=== PATIENT | female | born 1995 | race Hispanic/Latino ===

== ENCOUNTER 2018-05-10 05:49 | Emergency (ER) | payer SELFPAY ==
[2018-05-10] MEDS ORDERED: LIDOCAINE 1% MPF 5 ML VIAL ONE (06:18)
--- NOTE | 2018-05-10 06:43 | EDPHYS ---
Physician Documentation [facility] Name: Althea Harmon Age: 22 yrs Sex: Female : 1995 Arrival Date: 05/10/2018 Time: 05:50 Bed 18 Private MD: ED Physician Douglas Kellogg HPI: 05/10 06:33 This 22 yrs old Female presents to ER via Ambulatory with complaints of gs Foreign Body In Ear. 06:33 The patient presents with a foreign body sensation, presumably from an insect. The gs complaints affect the left ear. Onset: The symptoms/episode began/occurred this morning. Modifying factors: The symptoms are alleviated by nothing, the symptoms are aggravated by nothing. Associated signs and symptoms: Pertinent negatives: cough, fever, lightheadedness. Severity of symptoms: At their worst the symptoms were moderate in the emergency department the symptoms are unchanged. The patient has not experienced similar symptoms in the past. 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 - Social history:: Smoking status: Patient/guardian denies using tobacco. - Ebola Screening: : No symptoms or risks identified at this time. ROS: 06:35 All other systems are negative. gs Exam: 06:35 Head/Face: Normocephalic, atraumatic. Neck: Trachea midline, no thyromegaly or masses gs palpated, and no cervical lymphadenopathy. Supple, full range of motion without nuchal rigidity, or vertebral point tenderness. No Meningismus. 06:35 Constitutional: The patient appears alert, awake, uncomfortable. 06:35 ENT: Ear canal(s): foreign body, an insect, in the left external ear canal. Vital Signs: 06:03 BP 130 / 67; Pulse 99; Resp 18; Temp 98.6; Pulse Ox 100% on R/A; Weight 108.86 kg; aa1 Height 5 ft. 3 in. (160.02 cm); Pain 7/10; 06:03 Body Mass Index 42.51 (108.86 kg, 160.02 cm) aa1 Procedures: 06:35 Foreign Body Removal: an insect, from the left ear canal, by using alligator clamps, gs lidocaine lavage, normal saline irrigation, able to remove completely some mild bleeding noted, . The patient tolerated the removal well. MDM: 06:32 Patient medically screened. 06:35 Data reviewed: vital signs, nurses notes. Response to treatment: the patient's symptoms gs have markedly improved after treatment. Administered Medications: 06:30 Drug: Lidocaine (1 %) 5 mg Route: Infiltration; aa1 06:57 Drug: Zofran 4 mg Route: PO; ea 07:04 Follow up: Response: Medication administered at discharge. ea 06:58 Drug: [place] 5 mg-325 mg 1 tabs Route: PO; ea 07:04 Follow up: Response: Medication administered at discharge. ea Disposition: 05/10/18 06:42 Discharged to Home. Impression: Foreign body in left ear. - Condition is Stable. - Discharge Instructions: Ear Foreign Body, [id number]. - Prescriptions for Ciprodex 0.3- 0.1 % Otic Drops, Suspension - instill 4 drop by OTIC route every 12 hours for 7 days , for ears ONLY; 1 Container. - Medication Reconciliation Form, Thank You Letter, Antibiotic Education, Prescription Opioid Use form. - Follow up: Daja Garces MD; When: 2 - 3 days; Reason: Re-evaluation by your physician. Signatures: Fátima Guevara RN RN aa1 Rosalinda Salinas RN RN ea Douglas Kellogg MD MD Corrections: (The following items were deleted from the chart) 07:04 06:42 05/10/2018 06:42 Discharged to Home. Impression: Foreign body in left ear. ea Condition is Stable. Forms are Medication Reconciliation Form, Thank You Letter, Antibiotic Education, Prescription Opioid Use. Follow up: Daja Garces; When: 2 - 3 days; Reason: Re-evaluation by your physician. gs
--- NOTE | 2018-05-10 06:43 | ER ---
Nurse's Notes [facility] Name: Althea Harmon Age: 22 yrs Sex: Female : 1995 Arrival Date: 05/10/2018 Time: 05:50 Bed 18 Private MD: Diagnosis: Foreign body in left ear Presentation: 05/10 05:59 Presenting complaint: Patient states: she thinks she may have a bug in her L ear. aa1 Reports feeling something crawl into her ear at approx 0100 this am and she cannot get it out. Insect noted in L ear canal. Transition of care: patient was not received from another setting of care. Onset of symptoms was May 10, 2018. Risk Assessment: Do you want to hurt yourself or someone else? Patient reports no desire to harm self or others. Initial Sepsis Screen: Does the patient meet any 2 criteria? No. Patient's initial sepsis screen is negative. Does the patient have a suspected source of infection? No. Patient's initial sepsis screen is negative. Care prior to arrival: None. 05:59 Method Of Arrival: Ambulatory aa1 05:59 Acuity: ZENON 4 aa1 Triage Assessment: 06:03 General: Appears in no apparent distress. comfortable, Behavior is calm, cooperative, aa1 appropriate for age. 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 - Social history:: Smoking status: Patient/guardian denies using tobacco. - Ebola Screening: : No symptoms or risks identified at this time. Screenin:55 Abuse screen: Denies threats or abuse. Denies injuries from another. Nutritional aa1 screening: No deficits noted. Tuberculosis screening: No symptoms or risk factors identified. Fall Risk None identified. Assessment: 05:55 General: Appears in no apparent distress. Behavior is cooperative, anxious. Pain: aa1 Complains of pain in left ear. Neuro: Level of Consciousness is awake, alert, obeys commands, Oriented to person, place, time, situation. Respiratory: Airway is patent Respiratory effort is even, unlabored, Respiratory pattern is regular, symmetrical. EENT: Ear canal w/ foreign body noted from left ear. Derm: Skin is intact, is healthy with good turgor, Skin is pink, warm \T\ dry. 06:58 Reassessment: Patient and/or family updated on plan of care and expected duration. Pain ea level reassessed. Patient is alert, oriented x 3, equal unlabored respirations, skin warm/dry/pink. Discharge instruction given to patient, verbalized the understanding of instruction. Vital Signs: 06:03 BP 130 / 67; Pulse 99; Resp 18; Temp 98.6; Pulse Ox 100% on R/A; Weight 108.86 kg; aa1 Height 5 ft. 3 in. (160.02 cm); Pain 7/10; 06:03 Body Mass Index 42.51 (108.86 kg, 160.02 cm) aa1 ED Course: 05:50 Patient arrived in ED. am2 05:53 Douglas Kellogg MD is Attending Physician. 05:55 Patient has correct armband on for positive identification. Bed in low position. Call aa1 light in reach. Pulse ox on. NIBP on. 06:02 Triage completed. aa1 06:03 Arm band placed on right wrist. aa1 06:35 Assist provider with foreign body removal of an insect from left ear canal. using aa1 alligator clamps, Set up for procedure. Performed by Douglas Kellogg MD. Patient did not have IV access during this emergency room visit. 06:41 Daja Garces MD is Referral Physician. 06:48 Rosalinda Salinas, RN is Primary Nurse. ea Administered Medications: 06:30 Drug: Lidocaine (1 %) 5 mg Route: Infiltration; aa1 06:57 Drug: Zofran 4 mg Route: PO; ea 07:04 Follow up: Response: Medication administered at discharge. ea 06:58 Drug: [place] 5 mg-325 mg 1 tabs Route: PO; ea 07:04 Follow up: Response: Medication administered at discharge. ea Outcome: 06:42 Discharge ordered by . gs 07:00 Condition: improved ea 07:00 Discharge instructions given to patient, Instructed on discharge instructions, follow up and referral plans. medication usage, Demonstrated understanding of instructions, follow-up care, medications, Prescriptions given X 1. 07:03 Discharged to home ambulatory, with friend. ea 07:04 Patient left the ED. ea Signatures: Fátima Guevara RN RN Lali Gr Elena RN Douglas Briceño ea, MD MD gs
[2018-05-10] MEDS ORDERED: HYDROCODONE/APAP 5/325 MG TAB ONE (06:56)
[2018-05-10] MEDS ORDERED: ONDANSETRON 4 MG/2 ML VIAL ONE (06:56)
[2018-05-10] MEDS ORDERED: ONDANSETRON 4 MG (ODT) TAB ONE (06:56)
== END 2018-05-10 07:04 | disposition home or self-care (01) ==
LOC: ER 05:49
PROC: 09C4XZZ Extirpation of Matter from Left External Auditory Canal, External Approach (ICD-10-PCS; principal; 2018-05-10)
DX: T16.2XXA Foreign body in left ear, initial encounter (principal)
CPT/HCPCS: 99284; J2405

== ENCOUNTER 2018-12-06 10:00 | Emergency (ER) | payer SELFPAY ==
--- NOTE | 2018-12-06 11:14 | RAD REPORT ---
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 This should be correlated clinically to see if patient has point tenderness in this region to schwartz ggest an acute fracture. No dislocation
--- NOTE | 2018-12-06 11:16 | RAD REPORT ---
EXAM DESCRIPTION: RAD - Foot Right 3 View - 12/06/2018 10:49 am CLINICAL HISTORY: Right foot pain status post injury FINDINGS: No fracture or dislocation is seen involving the right foot
--- NOTE | 2018-12-06 11:22 | ER ---
Nurse's Notes [facility] Name: Althea Harmon Age: 23 yrs Sex: Female : 1995 Arrival Date: 12/06/2018 Time: 10:01 Bed 11 Private MD: Diagnosis: Sprain of unspecified ligament of right ankle;Unspecified sprain of right foot Presentation: 12/06 10:11 Presenting complaint: Patient states: stepped on toy, twisted right ankle, c/o pain and iw swelling to ankle. Transition of care: patient was not received from another setting of care. Onset of symptoms was December 06, 2018. Risk Assessment: Do you want to hurt yourself or someone else? Patient reports no desire to harm self or others. Initial Sepsis Screen: Does the patient meet any 2 criteria? No. Patient's initial sepsis screen is negative. Does the patient have a suspected source of infection? No. Patient's initial sepsis screen is negative. Care prior to arrival: None. 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 - Social history:: Smoking status: Patient/guardian denies using tobacco. - Ebola Screening: : Patient negative for fever greater than or equal to 101.5 degrees Fahrenheit, and additional compatible Ebola Virus Disease symptoms Patient denies exposure to infectious person Patient denies travel to an Ebola-affected area in the 21 days before illness onset No symptoms or risks identified at this time. Screenin:15 Abuse screen: Denies threats or abuse. Denies injuries from another. Nutritional iw screening: No deficits noted. Tuberculosis screening: No symptoms or risk factors identified. Fall Risk None identified. Assessment: 10:14 General: Appears in no apparent distress. Behavior is calm. Pain: Complains of pain in iw right ankle. Neuro: Level of Consciousness is awake, alert, obeys commands, Oriented to person, place, time. Cardiovascular: Patient's skin is warm and dry. Respiratory: Respiratory effort is even, unlabored, Respiratory pattern is regular. Derm: Skin is intact, is healthy with good turgor. Musculoskeletal: Range of motion: limited in right ankle Reports pain in right ankle. Vital Signs: 10:12 BP 117 / 76; Pulse 84; Resp 16; Pulse Ox 100% on R/A; Weight 97.52 kg; Height 5 ft. 11 iw in. (180.34 cm); Pain 5/10; 10:12 Body Mass Index 29.99 (97.52 kg, 180.34 cm) iw ED Course: 10:01 Patient arrived in ED. as 10:04 Naty Mehta FNP-C is PHCP. kb 10:04 Bhanu Kennedy MD is Attending Physician. kb 10:11 Raven Sher, RN is Primary Nurse. iw 10:12 Triage completed. iw 10:14 Arm band placed on. iw 10:14 Patient has correct armband on for positive identification. iw 10:15 No provider procedures requiring assistance completed. Patient did not have IV access iw during this emergency room visit. 10:48 X-ray completed. Portable x-ray completed in exam room. Patient tolerated procedure jb2 well. 10:49 Ankle Right 3 View XRAY In Process Unspecified. EDMS 10:49 Foot Right 3 View XRAY In Process Unspecified. EDMS Administered Medications: No medications were administered Outcome: 11:21 Discharge ordered by . kb 11:58 Discharged to home ambulatory, with crutches, with family. iw 11:58 Condition: good 11:58 Discharge instructions given to patient, family, Instructed on discharge instructions, follow up and referral plans. medication usage, Demonstrated understanding of instructions, follow-up care, medications, Prescriptions given X 1. 11:59 Patient left the ED. iw Signatures: Dispatcher [employer] EDMS Naty Mehta FNP-C FNP-Brte Field jb2 Kyra Blood as Raven Sher, RN RN iw
--- NOTE | 2018-12-06 11:22 | EDPHYS ---
Physician Documentation [facility] Name: Althea Harmon Age: 23 yrs Sex: Female : 1995 Arrival Date: 12/06/2018 Time: 10:01 Bed 11 Private MD: ED Physician Bhanu Kennedy HPI: 12/06 10:11 This 23 yrs old Female presents to ER via Unassigned with complaints of Ankle kb Injury. 10:11 The patient presents with an injury, pain, swelling, tenderness. The complaints affect kb the right ankle. Onset: The symptoms/episode began/occurred just prior to arrival. Context: The problem was sustained at work, resulted from the patient stepping on toy and twisting foot and ankle The mechanism of injury is unknown. The patient is unable to bear weight. The patient is not able to ambulate. Associated signs and symptoms: Pertinent positives: swelling, Pertinent negatives: calf tenderness, fever, nausea, numbness, rash, tingling, vomiting, warmth, weakness. Modifying factors: The symptoms are alleviated by nothing, the symptoms are aggravated by weight bearing, movement. Severity of symptoms: At their worst the symptoms were moderate, in the emergency department the symptoms are unchanged. The patient has experienced similar episodes in the past, a few times. The patient has not recently seen a physician. 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 Reports she has twisted her ankle a few times in the past, but this is the worst and feels different. Unable to bear weight after incident. 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 - Social history:: Smoking status: Patient/guardian denies using tobacco. - Ebola Screening: : Patient negative for fever greater than or equal to 101.5 degrees Fahrenheit, and additional compatible Ebola Virus Disease symptoms Patient denies exposure to infectious person Patient denies travel to an Ebola-affected area in the 21 days before illness onset No symptoms or risks identified at this time. ROS: 10:16 Constitutional: Negative for fever, chills, and weight loss, Cardiovascular: Negative kb for chest pain, palpitations, and edema, Respiratory: Negative for shortness of breath, cough, wheezing, and pleuritic chest pain, Abdomen/GI: Negative for abdominal pain, nausea, vomiting, diarrhea, and constipation, Skin: Negative for injury, rash, and discoloration, Neuro: Negative for headache, weakness, numbness, tingling, and seizure. 10:16 MS/extremity: Positive for injury or acute deformity, pain, swelling, tenderness, of the dorsum of right foot and right ankle. Exam: 10:16 Constitutional: This is a well developed, well nourished patient who is awake, alert, kb and in no acute distress. Head/Face: Normocephalic, atraumatic. Chest/axilla: Normal chest wall appearance and motion. Nontender with no deformity. No lesions are appreciated. Cardiovascular: Regular rate and rhythm with a normal S1 and S2. No gallops, murmurs, or rubs. Normal PMI, no JVD. No pulse deficits. Respiratory: Lungs have equal breath sounds bilaterally, clear to auscultation and percussion. No rales, rhonchi or wheezes noted. No increased work of breathing, no retractions or nasal flaring. Abdomen/GI: Soft, non-tender, with normal bowel sounds. No distension or tympany. No guarding or rebound. No evidence of tenderness throughout. Skin: Warm, dry with normal turgor. Normal color with no rashes, no lesions, and no evidence of cellulitis. Neuro: Awake and alert, GCS 15, oriented to person, place, time, and situation. Cranial nerves II-XII grossly intact. Motor strength 5/5 in all extremities. Sensory grossly intact. Cerebellar exam normal. Normal gait. 10:16 Musculoskeletal/extremity: Extremities: grossly normal except: noted in the dorsum of right foot and right ankle: pain, swelling, tenderness, ROM: intact in all extremities, limited active range of motion due to pain, Circulation is intact in all extremities. Sensation intact. Weight bearing: is unable to bear weight. Vital Signs: 10:12 BP 117 / 76; Pulse 84; Resp 16; Pulse Ox 100% on R/A; Weight 97.52 kg; Height 5 ft. 11 iw in. (180.34 cm); Pain 5/10; 10:12 Body Mass Index 29.99 (97.52 kg, 180.34 cm) iw MDM: 10:04 Patient medically screened. kb 10:18 Data reviewed: vital signs, nurses notes. Data interpreted: Pulse oximetry: on room air kb is 100 %. Interpretation: normal. 11:17 Counseling: I had a detailed discussion with the patient and/or guardian regarding: the kb historical points, exam findings, and any diagnostic results supporting the discharge/admit diagnosis, radiology results, the need for outpatient follow up, a orthopedic surgeon, to return to the emergency department if symptoms worsen or persist or if there are any questions or concerns that arise at home. 12/06 10:09 Order name: Ankle Right 3 View XRAY; Complete Time: 11:16 kb 12/06 10:09 Order name: Foot Right 3 View XRAY; Complete Time: 11:17 kb 12/06 11:18 Order name: Short Leg Splint; Complete Time: 11:59 kb 12/06 11:18 Order name: Crutches; Complete Time: 11:59 kb Administered Medications: No medications were administered Disposition: 12:36 Co-signature as Attending Physician, Bhanu Kennedy MD I agree with the assessment and sydnee plan of care. Disposition: 12/06/18 11:21 Discharged to Home. Impression: Sprain of unspecified ligament of right ankle, Unspecified sprain of right foot. - Condition is Stable. - Discharge Instructions: Ankle Sprain, [id number], Ankle Fracture, [id number]. - Prescriptions for Diclofenac Sodium 75 mg Oral Tablet, Delayed Release (E.C.) - take 1 tablet by ORAL route 2 times per day As needed; 30 tablet. - Work release form, Medication Reconciliation Form, Thank You Letter, Antibiotic Education, Prescription Opioid Use form. - Follow up: Emergency Department; When: As needed; Reason: Worsening of condition. Follow up: Private Physician; When: 2 - 3 days; Reason: Recheck today's complaints, Continuance of care, Re-evaluation by your physician. Signatures: Dispatcher [employer] Naty Jasso, Bhanu Perez MD MD cha Williams, Irene, MAGALY RN iw Corrections: (The following items were deleted from the chart) 11:59 11:21 12/06/2018 11:21 Discharged to Home. Impression: Sprain of unspecified ligament iw of right ankle; Unspecified sprain of right foot. Condition is Stable. Forms are Medication Reconciliation Form, Thank You Letter, Antibiotic Education, Prescription Opioid Use. Follow up: Emergency Department; When: As needed; Reason: Worsening of condition. Follow up: Private Physician; When: 2 - 3 days; Reason: Recheck today's complaints, Continuance of care, Re-evaluation by your physician. kb
== END 2018-12-06 11:59 | disposition home or self-care (01) ==
LOC: ER 10:00
DX: S93.401A Sprain of unspecified ligament of right ankle, initial encounter (principal); X50.1XXA Overexertion from prolonged static or awkward postures, initial encounter; Y93.01 Activity, walking, marching and hiking; Y92.210 Daycare center as the place of occurrence of the external cause
CPT/HCPCS: 99283

== ENCOUNTER 2019-07-08 15:24 | Emergency (ER) | payer SELFPAY ==
[2019-07-08] MEDS ORDERED: DIAZEPAM 2 MG TABLET ONE (17:36)
[2019-07-08] MEDS ORDERED: dexAMETHasone 4 MG/ML VIAL ONE (17:36)
--- NOTE | 2019-07-08 17:36 | EDPHYS ---
Physician Documentation [facility] Name: Althea Harmon Age: 23 yrs Sex: Female : 1995 Arrival Date: 07/08/2019 Time: 15:25 Bed 14 Private MD: ED Physician Delgado Garcia HPI: 07/08 17:29 This 23 yrs old Female presents to ER via Ambulatory with complaints of Back snw Pain. 17:29 The patient presents with pain that is acute. The symptoms are located in the low back. 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 The pain radiates to the left leg. The problem was sustained when bending over. Modifying factors: The patient symptoms are alleviated by nothing, the patient symptoms are aggravated by bending. Severity of symptoms: At their worst the symptoms were moderate. The patient has experienced similar episodes in the past. The patient has not recently seen a physician. Historical: - Allergies: 15:43 No Known Allergies; la1 - PMHx: 15:43 None; la1 - Immunization history:: Adult Immunizations up to date. - Social history:: Smoking status: Patient/guardian denies using tobacco. - Ebola Screening: : No symptoms or risks identified at this time. ROS: 17:28 Constitutional: Negative for fever, chills, and weight loss, Eyes: Negative for injury, snw pain, redness, and discharge, ENT: Negative for injury, pain, and discharge, Neck: Negative for injury, pain, and swelling, Cardiovascular: Negative for chest pain, palpitations, and edema, Respiratory: Negative for shortness of breath, cough, wheezing, and pleuritic chest pain, Abdomen/GI: Negative for abdominal pain, nausea, vomiting, diarrhea, and constipation, : Negative for injury, bleeding, discharge, and swelling, MS/Extremity: Negative for injury and deformity, Skin: Negative for injury, rash, and discoloration, Neuro: Negative for headache, weakness, numbness, tingling, and seizure, Psych: Negative for depression, anxiety, suicide ideation, homicidal ideation, and hallucinations. 17:28 Back: Positive for decreased range of motion, pain with movement, radiated pain, of the down left leg. Exam: 17:27 Constitutional: This is a well developed, well nourished patient who is awake, alert, snw and in no acute distress. Head/Face: Normocephalic, atraumatic. Eyes: Pupils equal round and reactive to light, extra-ocular motions intact. Lids and lashes normal. Conjunctiva and sclera are non-icteric and not injected. Cornea within normal limits. Periorbital areas with no swelling, redness, or edema. ENT: Nares patent. No nasal discharge, no septal abnormalities noted. Tympanic membranes are normal and external auditory canals are clear. Oropharynx with no redness, swelling, or masses, exudates, or evidence of obstruction, uvula midline. Mucous membranes moist. Neck: Trachea midline, no thyromegaly or masses palpated, and no cervical lymphadenopathy. Supple, full range of motion without nuchal rigidity, or vertebral point tenderness. No Meningismus. Chest/axilla: Normal chest wall appearance and motion. Nontender with no deformity. No lesions are appreciated. Cardiovascular: Regular rate and rhythm with a normal S1 and S2. No gallops, murmurs, or rubs. Normal PMI, no JVD. No pulse deficits. Respiratory: Lungs have equal breath sounds bilaterally, clear to auscultation and percussion. No rales, rhonchi or wheezes noted. No increased work of breathing, no retractions or nasal flaring. Abdomen/GI: Soft, non-tender, with normal bowel sounds. No distension or tympany. No guarding or rebound. No evidence of tenderness throughout. Skin: Warm, dry with normal turgor. Normal color with no rashes, no lesions, and no evidence of cellulitis. MS/ Extremity: Pulses equal, no cyanosis. Neurovascular intact. Full, normal range of motion. Neuro: Awake and alert, GCS 15, oriented to person, place, time, and situation. Cranial nerves II-XII grossly intact. Motor strength 5/5 in all extremities. Sensory grossly intact. Cerebellar exam normal. Normal gait. Psych: Awake, alert, with orientation to person, place and time. Behavior, mood, and affect are within normal limits. 17:27 Back: pain, that is moderate, ROM is painful, with flexion, muscle spasm, is not present, Straight leg raises: left lower extremity illicits pain, at 30 degrees. 17:27 Neuro: Exam negative for acute changes, focal neuro deficits. Vital Signs: 15:43 BP 119 / 67; Pulse 84; Resp 18; Temp 98.1; Pulse Ox 100% on R/A; Weight 104.33 kg; la1 Height 5 ft. 2 in. (157.48 cm); 17:45 BP 117 / 64; Pulse 78; Resp 18; Temp 97.6; Pulse Ox 99% on R/A; ph 15:43 Body Mass Index 42.07 (104.33 kg, 157.48 cm) la1 MDM: 16:32 Patient medically screened. snw 17:30 Data reviewed: vital signs, nurses notes. Data interpreted: Pulse oximetry: on room air snw is 100 %. Interpretation: normal. Counseling: I had a detailed discussion with the patient and/or guardian regarding: the historical points, exam findings, and any diagnostic results supporting the discharge/admit diagnosis, the need for outpatient follow up, to return to the emergency department if symptoms worsen or persist or if there are any questions or concerns that arise at home. Special discussion: Based on the history and exam findings, there is no indication for further emergent testing or inpatient evaluation. I discussed with the patient/guardian the need to see the back specialist for further evaluation of the symptoms. I discussed with the patient/guardian the need to see the primary care provider for further evaluation of the symptoms. 07/08 16:53 Order name: Urine Dipstick--Ancillary (enter results); Complete Time: 19:13 ss 07/08 16:53 Order name: Urine --Ancillary (enter results); Complete Time: 19:13 ss 07/08 16:46 Order name: Urine Dipstick-Ancillary (obtain specimen); Complete Time: 16:51 ph Administered Medications: 17:49 Drug: Valium 5 mg Route: PO; ph 18:15 Follow up: Response: No adverse reaction ph 17:50 Drug: Decadron 8 mg Route: PO; ph 18:15 Follow up: Response: No adverse reaction ph Disposition: 07/08/19 17:35 Discharged to Home. Impression: Low back pain. - Condition is Stable. - Discharge Instructions: Back Pain, Adult. - Prescriptions for Ultram 50 mg Oral Tablet - take 1 tablet by ORAL route every 6 hours As needed; 12 tablet. Prednisone 20 mg Oral Tablet - take 2 tablet by ORAL route once daily for 5 days; 10 tablet. - Work release form, Medication Reconciliation Form, Thank You Letter, Antibiotic Education, Prescription Opioid Use form. - Follow up: Private Physician; When: 1 - 2 days; Reason: Recheck today's complaints, Continuance of care, Re-evaluation by your physician. Follow up: Emergency Department; When: As needed; Reason: Worsening of condition. Addendum: 07/12/2019 06:59 Co-signature as Attending Physician, Delgado Garcia MD. r n Signatures: Dispatcher [employer] EDMS Sylvie Beckford, FINGER WAVER-C FINGER WAVER-Csnw Delgado Garcia MD MD rn Attema, Lee RN RN laGay Fall RN RN ph Corrections: (The following items were deleted from the chart) 07/08 18:29 17:35 07/08/2019 17:35 Discharged to Home. Impression: Low back pain. Condition is ph Stable. Forms are Medication Reconciliation Form, Thank You Letter, Antibiotic Education, Prescription Opioid Use. Follow up: Private Physician; When: 1 - 2 days; Reason: Recheck today's complaints, Continuance of care, Re-evaluation by your physician. Follow up: Emergency Department; When: As needed; Reason: Worsening of condition. snw
--- NOTE | 2019-07-08 17:36 | ER ---
Nurse's Notes [facility] Name: Althea Harmon Age: 23 yrs Sex: Female : 1995 Arrival Date: 07/08/2019 Time: 15:25 Bed 14 Private MD: Diagnosis: Low back pain Presentation: 07/08 15:42 Presenting complaint: Patient states: I have been having back pain for months, I bent la1 over today and something happened and now I can hardly put weight on that left side. Transition of care: patient was not received from another setting of care. Onset of symptoms was July 08, 2019. Risk Assessment: Do you want to hurt yourself or someone else? Patient reports no desire to harm self or others. Initial Sepsis Screen: Does the patient meet any 2 criteria? No. Patient's initial sepsis screen is negative. Does the patient have a suspected source of infection? No. Patient's initial sepsis screen is negative. Care prior to arrival: None. 15:42 Method Of Arrival: Ambulatory la1 15:42 Acuity: ZENON 3 la1 Historical: - Allergies: 15:43 No Known Allergies; la1 - PMHx: 15:43 None; la1 - Immunization history:: Adult Immunizations up to date. - Social history:: Smoking status: Patient/guardian denies using tobacco. - Ebola Screening: : No symptoms or risks identified at this time. Screenin:00 Abuse screen: Denies threats or abuse. Denies injuries from another. Nutritional ph screening: No deficits noted. Tuberculosis screening: No symptoms or risk factors identified. Fall Risk None identified. Assessment: 17:00 General: Appears in no apparent distress. uncomfortable, obese, well groomed, Behavior ph is calm, cooperative, appropriate for age. Pain: Complains of pain in low back area Pain radiates to left leg. Neuro: Level of Consciousness is awake, alert, obeys commands, Oriented to person, place, time, situation. Cardiovascular: Capillary refill < 3 seconds in bilateral fingers Patient's skin is warm and dry. Respiratory: Airway is patent Respiratory effort is even, unlabored, Respiratory pattern is regular, symmetrical. Derm: Skin is intact, is healthy with good turgor, Skin is pink, warm \T\ dry. Musculoskeletal: Circulation, motion, and sensation intact. Range of motion: intact in all extremities. Vital Signs: 15:43 BP 119 / 67; Pulse 84; Resp 18; Temp 98.1; Pulse Ox 100% on R/A; Weight 104.33 kg; la1 Height 5 ft. 2 in. (157.48 cm); 17:45 BP 117 / 64; Pulse 78; Resp 18; Temp 97.6; Pulse Ox 99% on R/A; ph 15:43 Body Mass Index 42.07 (104.33 kg, 157.48 cm) la1 ED Course: 15:25 Patient arrived in ED. as 15:26 Sylvie Beckford FNP-C is PHCP. snw 15:26 Delgado Garcia MD is Attending Physician. snw 15:42 Triage completed. la1 15:43 Arm band placed on left wrist. la1 16:32 Gay Hoffman, RN is Primary Nurse. ph 17:00 Patient has correct armband on for positive identification. Bed in low position. Call ph light in reach. Side rails up X 1. 18:25 No provider procedures requiring assistance completed. Patient did not have IV access ph during this emergency room visit. Administered Medications: 17:49 Drug: Valium 5 mg Route: PO; ph 18:15 Follow up: Response: No adverse reaction ph 17:50 Drug: Decadron 8 mg Route: PO; ph 18:15 Follow up: Response: No adverse reaction ph Outcome: 17:35 Discharge ordered by MD. snw 18:29 Patient left the ED. ph 18:29 Discharged to home ambulatory, with significant other. ph 18:29 Condition: good 18:29 Discharge instructions given to patient, Instructed on discharge instructions, follow up and referral plans. medication usage, Demonstrated understanding of instructions, follow-up care, medications, Prescriptions given X 2. Signatures: Sylvie Beckford FNP-C MEDICAL RECEPTIONIST-Csnw Kyra Blood Lee RN RN la1 Gay Hoffman RN RN ph
[2019-07-08 18:18] LABS: Urine Blood NEGATIVE (NEG); Urine Glucose NEGATIVE (NEG); Urine Protein NEGATIVE (NEG); Urine Specific Gravity 1.025 (1.005-1.030)
[2019-07-08 19:20] VITALS: BP 119/67; TEMP 98.1; O2SAT 100
== END 2019-07-08 18:29 | disposition home or self-care (01) ==
LOC: ER 15:24
DX: M54.5 Low back pain (principal)
CPT/HCPCS: 81003; 81025; 99283

== ENCOUNTER 2019-08-29 18:27 | Emergency (ER) | payer SELFPAY ==
--- OUTSIDE RECORDS SUMMARY | 2019-08-29 18:28 | XMS REPORT ---
:1995 [facility] Address [address] [place] [address] Dr. Jones [address] [place] [id number] Care Team Providers Name Role Phone Unavailable Unavailable Unavailable Problems This patient has no known problems. Allergies, Adverse Reactions, Alerts This patient has no known allergies or adverse reactions. Medications This patient has no known medications.
[2019-08-29 19:31] LABS: Absolute Lymphocytes (CBC) 2.9 K/uL (0.7-4.9); Basophils % 0.4 % (0-1.3); Hematocrit 39.9 % (36.0-45.0); Lymphocytes % 29.4 % (15.3-44.8); MPV 7.8 fL (7.6-11.3); RBC Red Blood Cell Count 4.88 M/uL (3.86-4.86)
[2019-08-29 19:47] LABS: Urine Blood NEGATIVE (NEG); Urine Glucose NEGATIVE (NEG); Urine Protein NEGATIVE (NEG); Urine Specific Gravity 1.025 (1.005-1.030)
--- NOTE | 2019-08-29 19:48 | RAD REPORT ---
EXAM DESCRIPTION: US - Abdomen Exam Limited - 08/29/2019 7:41 pm CLINICAL HISTORY: ABD PAIN COMPARISON: No comparisons FINDINGS: No gallstones, sludge or other abnormalities within the gallbladder lumen. There is no wal l thickening or pericholecystic fluid. No common duct stone or biliary tree dilatation identified. IMPRESSION: Normal gallbladder and biliary tree ultrasound.
[2019-08-29 19:50] LABS: ALT/SGPT 35 U/L (12-78); AST/SGOT 19 U/L (15-37); Albumin 4.2 g/dL (3.4-5.0); Alkaline Phosphatase 80 U/L (45-117); BUN Blood Urea Nitrogen 9 mg/dL (7-18); Bicarbonate 28 mmol/L (21-32); Bilirubin Direct 0.1 mg/dL (0-0.2); Bilirubin Total 0.4 mg/dL (0.2-1.0); Glucose Level 103 mg/dL (74-106); Lipase 86 U/L (73-393); Potassium 3.3 mmol/L (3.5-5.1); Protein, Total 8.1 g/dL (6.4-8.2); Sodium Level 138 mmol/L (136-145)
--- NOTE | 2019-08-29 20:05 | ER ---
Nurse's Notes [facility] Name: Althea Harmon Age: 24 yrs Sex: Female : 1995 Arrival Date: 08/29/2019 Time: 18:30 Bed 20 Private MD: Diagnosis: Abdominal and pelvic pain Presentation: 08/29 19:09 Presenting complaint: Patient states: I am having these abdominal pain for 3 days, on rr5 and off its more on the upper area of my abdomen. I noticed whenever I eat junk food or greasy food. I am also throwing up and feels nauseated. Transition of care: patient was not received from another setting of care. Onset of symptoms was August 26, 2019. Risk Assessment: Do you want to hurt yourself or someone else? Patient reports no desire to harm self or others. Initial Sepsis Screen: Does the patient meet any 2 criteria? No. Patient's initial sepsis screen is negative. Does the patient have a suspected source of infection? No. Patient's initial sepsis screen is negative. Care prior to arrival: None. 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 - Social history:: Smoking status: Patient/guardian denies using tobacco, Patient/guardian denies using alcohol, street drugs. - Ebola Screening: : Patient negative for fever greater than or equal to 101.5 degrees Fahrenheit, and additional compatible Ebola Virus Disease symptoms Patient denies exposure to infectious person Patient denies travel to an Ebola-affected area in the 21 days before illness onset. Screenin:35 Abuse screen: Denies threats or abuse. Denies injuries from another. Nutritional rr5 screening: No deficits noted. Tuberculosis screening: No symptoms or risk factors identified. Fall Risk IV access (20 points). Total Shah Fall Scale indicates No Risk (0-24 pts). Assessment: 19:10 General: Appears in no apparent distress. comfortable, Behavior is calm, cooperative, rr5 appropriate for age. 19:10 Pain: Complains of pain in right upper quadrant and left upper quadrant Pain does not rr5 radiate. Pain currently is 3 out of 10 on a pain scale. at worst was 10 out of 10 on a pain scale. Quality of pain is described as aching, Pain began gradually, 2-3 days ago. Is intermittent, Aggravated by eating. Neuro: Level of Consciousness is awake, alert, obeys commands, Oriented to person, place, time, situation. Cardiovascular: Capillary refill < 3 seconds Patient's skin is warm and dry. Respiratory: Airway is patent Respiratory effort is even, unlabored, Respiratory pattern is regular, symmetrical. GI: Abdomen is round non-distended, obese, Bowel sounds present X 4 quads. Abd is soft and non tender Reports upper abdominal pain, nausea, vomiting. : No signs and/or symptoms were reported regarding the genitourinary system. EENT: No signs and/or symptoms were reported regarding the EENT system. Derm: Skin is intact, is healthy with good turgor, Skin temperature is warm. Musculoskeletal: Circulation, motion, and sensation intact. Capillary refill < 3 seconds. 19:35 Reassessment: Patient appears in no apparent distress at this time. ongoing ultrasound rr5 at bedside. 20:14 Reassessment: Patient appears in no apparent distress at this time. Patient is alert, rr5 oriented x 3, equal unlabored respirations, skin warm/dry/pink. discharge instruction given and explained without complaints made, verbalized understanding. Vital Signs: 19:12 BP 129 / 90; Pulse 101; Resp 20; Temp 98.4; Pulse Ox 100% ; Pain 3/10; rr5 19:22 Weight 117.93 kg; Height 5 ft. 3 in. (160.02 cm); rr5 20:14 BP 115 / 83; Pulse 95; Resp 16; Temp 98.2; Pulse Ox 99% on R/A; rr5 19:22 Body Mass Index 46.06 (117.93 kg, 160.02 cm) rr5 ED Course: 18:30 Patient arrived in ED. as 18:42 Quoc Grissom [facility]-C [facility] la1 18:42 Moses Wheeler MD is Attending Physician. la1 19:01 Donovan Grissom RN is Primary Nurse. rr5 19:10 Patient has correct armband on for positive identification. Bed in low position. Call rr5 light in reach. Pulse ox on. NIBP on. 19:12 Triage completed. rr5 19:21 Initial lab(s) drawn, by me, sent to lab. Inserted saline lock: 20 gauge in right lt1 antecubital area, using aseptic technique. 19:23 Arm band placed on right wrist. rr5 19:42 US Abdomen Limited In Process Unspecified. EDMS 20:15 No provider procedures requiring assistance completed. IV discontinued, intact, rr5 bleeding controlled, No redness/swelling at site. Pressure dressing applied. Administered Medications: No medications were administered Outcome: 20:04 Discharge ordered by MD. la1 20:15 Discharged to home ambulatory, with friend. rr5 20:15 Condition: stable 20:15 Discharge instructions given to patient, Instructed on discharge instructions, follow up and referral plans. medication usage, Demonstrated understanding of instructions, follow-up care, Prescriptions given X 2. 20:16 Patient left the ED. rr5 Signatures: Dispatcher [employer] EDND Kyra Blood Lee, SALES AND MARKETING ANALYST-C SALES AND MARKETING ANALYST-Cla1 Donovan Grissom, RN RN rr5 Tana Marshall lt1
--- NOTE | 2019-08-29 20:05 | EDPHYS ---
Physician Documentation [facility] Name: Althea Harmon Age: 24 yrs Sex: Female : 1995 Arrival Date: 08/29/2019 Time: 18:30 Bed 20 Private MD: ED Physician Moses Wheeler HPI: 08/29 19:09 This 24 yrs old Female presents to ER via Unassigned with complaints of la1 Abdominal Pain. 19:09 The patient presents with abdominal pain in the upper abdomen. Onset: The la1 symptoms/episode began/occurred today. The symptoms radiate to Associated signs and symptoms: Pertinent positives: nausea. The symptoms are described as sharp. Modifying factors: The symptoms are alleviated by nothing, the symptoms are aggravated by spicy food. Severity of pain: At its worst the pain was moderate. The patient has not experienced similar symptoms in the past. 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 - Social history:: Smoking status: Patient/guardian denies using tobacco, Patient/guardian denies using alcohol, street drugs. - Ebola Screening: : Patient negative for fever greater than or equal to 101.5 degrees Fahrenheit, and additional compatible Ebola Virus Disease symptoms Patient denies exposure to infectious person Patient denies travel to an Ebola-affected area in the 21 days before illness onset. ROS: 19:10 Constitutional: Negative for fever, chills, and weight loss, Eyes: Negative for injury, la1 pain, redness, and discharge, ENT: Negative for injury, pain, and discharge, Neck: Negative for injury, pain, and swelling, Cardiovascular: Negative for chest pain, palpitations, and edema, Respiratory: Negative for shortness of breath, cough, wheezing, and pleuritic chest pain, Back: Negative for injury and pain. 19:10 MS/Extremity: Negative for injury and deformity, Neuro: Negative for headache, weakness, numbness, tingling, and seizure. 19:10 Abdomen/GI: Positive for abdominal pain, nausea. Exam: 19:11 Constitutional: This is a well developed, well nourished patient who is awake, alert, la1 and in no acute distress. Head/Face: Normocephalic, atraumatic. Eyes: Pupils equal round and reactive to light, extra-ocular motions intact. . Periorbital areas with no swelling, redness, or edema. ENT: Mucous membranes moist. Neck: Trachea midline, no thyromegaly or masses palpated, and no cervical lymphadenopathy. Supple, full range of motion without nuchal rigidity, or vertebral point tenderness. No Meningismus. Chest/axilla: Normal chest wall appearance and motion. Nontender with no deformity. No lesions are appreciated. Cardiovascular: Regular rate and rhythm with a normal S1 and S2. No gallops, murmurs, or rubs. Normal PMI, no JVD. No pulse deficits. Respiratory: Lungs have equal breath sounds bilaterally, clear to auscultation No rales, rhonchi or wheezes noted. No increased work of breathing, no retractions or nasal flaring. 19:11 Abdomen/GI: Inspection: abdomen appears normal, Bowel sounds: normal, Palpation: soft, in all quadrants, mild abdominal tenderness, in the right upper quadrant and left upper quadrant, Indicators: McBurney's point is not tender, Dixon's sign is negative, Rovsing's sign is negative, Obturator sign is negative, Psoas sign is negative. Vital Signs: 19:12 BP 129 / 90; Pulse 101; Resp 20; Temp 98.4; Pulse Ox 100% ; Pain 3/10; rr5 19:22 Weight 117.93 kg; Height 5 ft. 3 in. (160.02 cm); rr5 20:14 BP 115 / 83; Pulse 95; Resp 16; Temp 98.2; Pulse Ox 99% on R/A; rr5 19:22 Body Mass Index 46.06 (117.93 kg, 160.02 cm) rr5 MDM: 19:03 Patient medically screened. la1 20:02 Data reviewed: vital signs, nurses notes, lab test result(s), radiologic studies, I la1 have discussed the patient's presentation/case with the attending Emergency Department Physician; and as a result, I will discharge patient. Data interpreted: Pulse oximetry: on room air is 100 %. Interpretation: normal. Counseling: I had a detailed discussion with the patient and/or guardian regarding: the historical points, exam findings, and any diagnostic results supporting the discharge/admit diagnosis, the presence of at least one elevated blood pressure reading (>120/80) during this emergency department visit, radiology results, the need for outpatient follow up, a family practitioner. 20:03 Special discussion: Based on the patient's Hx, exam, and Dx evaluation, there is no la1 indication for emergent surgery or inpatient Tx. It is understood by the patient/guardian that if the Sx's persist or worsen they need to return immediately for re-evaluation. ED course: Pt tolerating PO, not in pain at this time, since gall bladder is normal I suspect GERD or gastritis. 08/29 19:08 Order name: Basic Metabolic Panel; Complete Time: 19:59 la1 08/29 19:08 Order name: CBC with Diff; Complete Time: 19:59 la1 08/29 19:08 Order name: Creatinine for Radiology; Complete Time: 19:59 la1 08/29 19:08 Order name: Hepatic Function; Complete Time: 19:59 la1 08/29 19:08 Order name: Lipase; Complete Time: 19:59 la1 08/29 19:32 Order name: Urine Dipstick--Ancillary (enter results); Complete Time: 19:59 ar5 08/29 19:08 Order name: IV Saline Lock; Complete Time: 19:22 la1 08/29 19:08 Order name: Labs collected and sent; Complete Time: 19:22 la1 08/29 19:08 Order name: Urine Dipstick-Ancillary (obtain specimen); Complete Time: 19:33 la1 08/29 19:08 Order name: Urine Test (obtain specimen); Complete Time: 19:33 la1 08/29 19:08 Order name: US Abdomen Limited; Complete Time: 19:59 la1 08/29 19:32 Order name: Urine --Ancillary (enter results); Complete Time: 19:59 ar5 Administered Medications: No medications were administered Disposition: 20:25 Co-signature as Attending Physician, Moses Wheeler MD. pkl Disposition: 08/29/19 20:04 Discharged to Home. Impression: Abdominal and pelvic pain. - Condition is Stable. - Discharge Instructions: Abdominal Pain, Adult, Godu-sa-Dida. - Prescriptions for Protonix 40 mg Oral Tablet - take 1 tablet by ORAL route once daily; 30 tablet. Pepcid 20 mg Oral Tablet - take 1 tablet by ORAL route once daily; 20 tablet. - Medication Reconciliation Form, Thank You Letter form. - Follow up: Private Physician; When: 2 - 3 days; Reason: Recheck today's complaints, Re-evaluation by your physician. - Problem is new. - Symptoms have improved. Signatures: Dispatcher [employer] EDNC Moses Wheeler MD MD pkl Quoc Grissom FNP-C REGIONAL RECRUITER-Cla1 Donovan Grissom, RN RN rr5 Corrections: (The following items were deleted from the chart) 20:16 20:04 08/29/2019 20:04 Discharged to Home. Impression: Abdominal and pelvic pain. rr5 Condition is Stable. Forms are Medication Reconciliation Form, Thank You Letter, Antibiotic Education, Prescription Opioid Use. Follow up: Private Physician; When: 2 - 3 days; Reason: Recheck today's complaints, Re-evaluation by your physician. Problem is new. Symptoms have improved. la1
[2019-08-29 23:11] VITALS: BP 115/83; TEMP 98.2; O2SAT 99
== END 2019-08-29 20:16 | disposition home or self-care (01) ==
LOC: ER 18:27
DX: R10.9 Unspecified abdominal pain (principal); R10.2 Pelvic and perineal pain
CPT/HCPCS: 36415; 76705; 80048; 80076; 81003; 81025; 83690; 85025; 99284

== ENCOUNTER 2019-10-02 12:31 | Emergency (ER) | payer SELFPAY ==
--- OUTSIDE RECORDS SUMMARY | 2019-10-02 12:46 | XMS REPORT ---
:1995 [facility] Address [address] [place] [address] Dr. Jones [address] [place] [id number] Care Team Providers Name Role Phone Unavailable Unavailable Unavailable Problems This patient has no known problems. Allergies, Adverse Reactions, Alerts This patient has no known allergies or adverse reactions. Medications This patient has no known medications.
[2019-10-02] MEDS ORDERED: IBUPROFEN 200 MG TAB PO ONE (13:09)
[2019-10-02] MEDS ORDERED: ACETAMINOPHEN 500 MG TAB ONE (13:39)
--- NOTE | 2019-10-02 14:16 | ER ---
Nurse's Notes [facility] Name: Althea Harmon Age: 24 yrs Sex: Female : 1995 Arrival Date: 10/02/2019 Time: 12:31 Bed 23 Private MD: Diagnosis: Streptococcal pharyngitis Presentation: 10/02 12:59 Presenting complaint: Patient states: sore throat, cough, low grade fever, chills and ss ear pain that began yesterday. Transition of care: patient was not received from another setting of care. Onset of symptoms was October 01, 2019. Risk Assessment: Do you want to hurt yourself or someone else? Patient reports no desire to harm self or others. Initial Sepsis Screen: Does the patient meet any 2 criteria? HR > 90 bpm. Does the patient have a suspected source of infection? No. Patient's initial sepsis screen is negative. Care prior to arrival: None. 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 - Social history:: Smoking status: Patient/guardian denies using tobacco. - Ebola Screening: : Patient denies exposure to infectious person Patient denies travel to an Ebola-affected area in the 21 days before illness onset. Screenin:16 Abuse screen: Denies threats or abuse. Denies injuries from another. Nutritional mg2 screening: No deficits noted. Tuberculosis screening: No symptoms or risk factors identified. Fall Risk None identified. Assessment: 12:50 General: Appears in no apparent distress. ill, Behavior is calm, cooperative. General: ss Reports chills for 12-24 hours, fever for 12-24 hours, feeling ill for 12-24 hours, fatigue for 12-24 hours. Pain: Complains of pain in headache, sore throat. Neuro: Level of Consciousness is awake, alert, obeys commands, Oriented to person, place, time, situation. Respiratory: Reports mild cough that began yesterday. GI: Patient currently denies diarrhea, nausea, vomiting. : Denies burning with urination, urinary frequency. Derm: Skin is intact, is healthy with good turgor, Skin is dry, Skin is pink, warm \T\ dry. normal. Derm: Musculoskeletal: Circulation, motion, and sensation intact. Capillary refill < 3 seconds, is brisk, in bilateral fingers. Range of motion: intact in all extremities. 14:15 General: Appears in no apparent distress. comfortable, Behavior is calm, cooperative. mg2 Pain: Complains of pain in throat. Neuro: Level of Consciousness is awake, alert, obeys commands, Oriented to person, place, time, situation. Cardiovascular: Capillary refill < 3 seconds Patient's skin is warm and dry. Respiratory: Airway is patent Respiratory effort is even, unlabored, Respiratory pattern is regular, symmetrical. GI: No signs and/or symptoms were reported involving the gastrointestinal system. : No signs and/or symptoms were reported regarding the genitourinary system. EENT: Reports sore throat. Derm: Skin is intact, is healthy with good turgor, Skin is pink, warm \T\ dry. normal. Musculoskeletal: Circulation, motion, and sensation intact. Capillary refill < 3 seconds. Vital Signs: 13:04 BP 131 / 76; Pulse 120; Resp 17; Temp 99.7(O); Pulse Ox 100% on R/A; Weight 104.33 kg; ss Height 5 ft. 3 in. (160.02 cm); 13:38 Temp 100.0(O); ss 14:16 BP 127 / 73; Pulse 112; Resp 18; Temp 100.3; Pulse Ox 99% on R/A; mg2 13:04 Body Mass Index 40.74 (104.33 kg, 160.02 cm) ED Course: 12:31 Patient arrived in ED. as 12:35 Quoc Grissom FNP-C [facility]. la1 12:35 Delgado Garcia MD is Attending Physician. la1 13:03 Triage completed. ss 13:04 Arm band placed on right wrist. ss 13:23 Yecenia Seaman, MAGALY is Primary Nurse. 14:16 No provider procedures requiring assistance completed. Patient did not have IV access mg2 during this emergency room visit. 14:17 Patient has correct armband on for positive identification. mg2 Administered Medications: 13:15 Drug: Motrin 600 mg Route: PO; ss 14:25 Follow up: Response: No adverse reaction mg2 13:38 Drug: Tylenol 1000 mg Route: PO; ss 14:25 Follow up: Response: No adverse reaction mg2 14:25 Drug: Augmentin 875 mg Route: PO; mg2 14:25 Follow up: Response: No adverse reaction; Medication administered at discharge. mg2 Outcome: 14:15 Discharge ordered by . laCasi 14:25 Discharged to home ambulatory, with family. mg2 14:25 Condition: stable 14:25 Discharge instructions given to patient, family, Instructed on discharge instructions, follow up and referral plans. medication usage, Demonstrated understanding of instructions, follow-up care, medications, Prescriptions given X 1. 14:26 Patient left the ED. mg2 Signatures: Kyra Blood Shelby, MAGALY RN Quoc Grissom, BUSINESS INITIATIVES MANAGER-C BUSINESS INITIATIVES MANAGER-Cla1 Antoni Donnelly RN RN mg2
--- NOTE | 2019-10-02 14:16 | EDPHYS ---
Physician Documentation [facility] Name: Althea Harmon Age: 24 yrs Sex: Female : 1995 Arrival Date: 10/02/2019 Time: 12:31 Bed 23 Private MD: ED Physician Delgado Garcia HPI: 10/02 14:12 This 24 yrs old Female presents to ER via Ambulatory with complaints of Flu la1 Symptoms. 14:12 Onset: The symptoms/episode began/occurred 2 day(s) ago. Associated signs and symptoms: la1 Pertinent positives: sore throat. Modifying factors: The patient symptoms are alleviated by nothing, the patient symptoms are aggravated by nothing. The patient has not experienced similar symptoms in the past. Pt reports chills, fever, sore throat for the last two days. 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 - Social history:: Smoking status: Patient/guardian denies using tobacco. - Ebola Screening: : Patient denies exposure to infectious person Patient denies travel to an Ebola-affected area in the 21 days before illness onset. ROS: 14:13 Eyes: Negative for injury, pain, redness, and discharge, ENT: + sore throat Neck: la1 Negative for injury, pain, and swelling. 14:13 Cardiovascular: Negative for chest pain, palpitations, and edema, Respiratory: + cough Abdomen/GI: Negative for abdominal pain, nausea, vomiting, diarrhea, and constipation, Back: Negative for injury and pain, : Negative for injury, bleeding, discharge, and swelling, MS/Extremity: Negative for injury and deformity, Neuro: Negative for headache, weakness, numbness, tingling, and seizure. 14:13 Constitutional: Positive for chills, fever. Exam: 14:13 Constitutional: This is a well developed, well nourished patient who is awake, alert, la1 and in no acute distress. Head/Face: Normocephalic, atraumatic. Eyes: Pupils equal round and reactive to light, extra-ocular motions intact. 14:13 Chest/axilla: Normal chest wall appearance and motion. Nontender with no deformity. No lesions are appreciated. Cardiovascular: Regular rate and rhythm with a normal S1 and S2. No gallops, murmurs, or rubs. Normal PMI, no JVD. No pulse deficits. Respiratory: Lungs have equal breath sounds bilaterally, clear to auscultation. No rales, rhonchi or wheezes noted. No increased work of breathing, no retractions or nasal flaring. Abdomen/GI: Soft, non-tender, with normal bowel sounds. No distension or tympany. No guarding or rebound. No evidence of tenderness throughout. Back: No spinal tenderness. No costovertebral tenderness. Full range of motion. MS/ Extremity: Pulses equal, no cyanosis. Neurovascular intact. Full, normal range of motion. 14:13 ENT: TM's: are normal, Nose: Nasal mucosa: erythematous, Mouth: Lips: normal, Oral mucosa: normal, Tongue: is normal, Posterior pharynx: Tonsils: bilaterally enlarged, with erythema, Uvula: normal, midline, swelling, that is mild, erythema, that is mild. Vital Signs: 13:04 BP 131 / 76; Pulse 120; Resp 17; Temp 99.7(O); Pulse Ox 100% on R/A; Weight 104.33 kg; ss Height 5 ft. 3 in. (160.02 cm); 13:38 Temp 100.0(O); ss 14:16 BP 127 / 73; Pulse 112; Resp 18; Temp 100.3; Pulse Ox 99% on R/A; mg2 13:04 Body Mass Index 40.74 (104.33 kg, 160.02 cm) ss MDM: 13:04 Patient medically screened. la1 14:14 Data reviewed: vital signs, nurses notes, lab test result(s), and as a result, I will la1 discharge patient. Data interpreted: Pulse oximetry: on room air is 100 %. Interpretation: normal. Counseling: I had a detailed discussion with the patient and/or guardian regarding: the historical points, exam findings, and any diagnostic results supporting the discharge/admit diagnosis, lab results, the need for outpatient follow up, a family practitioner. Medication response: ibuprofen administration has improved the patient's temperature, ibuprofen administration has improved the patient's pain, 10/02 12:59 Order name: Flu; Complete Time: 14:11 10/02 12:59 Order name: Strep; Complete Time: 14:11 10/02 13:34 Order name: PO challenge; Complete Time: 13:38 la1 Administered Medications: 13:15 Drug: Motrin 600 mg Route: PO; ss 14:25 Follow up: Response: No adverse reaction mg2 13:38 Drug: Tylenol 1000 mg Route: PO; ss 14:25 Follow up: Response: No adverse reaction mg2 14:25 Drug: Augmentin 875 mg Route: PO; mg2 14:25 Follow up: Response: No adverse reaction; Medication administered at discharge. mg2 Disposition: 18:29 Co-signature as Attending Physician, Delgado Garcia MD. rn Disposition: 10/02/19 14:15 Discharged to Home. Impression: Streptococcal pharyngitis. - Condition is Stable. - Discharge Instructions: Pharyngitis, Strep Throat, Strep Throat, [id number], Rehydration, Adult. - Prescriptions for Augmentin 875- 125 mg Oral Tablet - take 1 tablet by ORAL route every 12 hours for 10 days; 20 tablet. - Work release form, Medication Reconciliation Form, Thank You Letter, Antibiotic Education form. - Follow up: Private Physician; When: 2 - 3 days; Reason: Recheck today's complaints, Re-evaluation by your physician. - Problem is new. - Symptoms have improved. Signatures: Dispatcher [employer] EDDelgado Capone MD MD rn Smirch, Shelby, RN RN ss Praveena, Quoc, CASEWORKER INTAKE-C CASEWORKER INTAKE-Cla1 Antoni Donnelly RN RN mg2 Corrections: (The following items were deleted from the chart) 14:26 14:15 10/02/2019 14:15 Discharged to Home. Impression: Streptococcal pharyngitis. mg2 Condition is Stable. Forms are Medication Reconciliation Form, Thank You Letter, Antibiotic Education, Prescription Opioid Use. Follow up: Private Physician; When: 2 - 3 days; Reason: Recheck today's complaints, Re-evaluation by your physician. Problem is new. Symptoms have improved. la1
[2019-10-02] MEDS ORDERED: AMOX/K CLAV 875 MG TAB ONE (14:24)
[2019-10-02 14:42] VITALS: BP 127/73; TEMP 100.3; O2SAT 99
== END 2019-10-02 14:26 | disposition home or self-care (01) ==
LOC: ER 12:31
DX: J02.0 Streptococcal pharyngitis (principal)
CPT/HCPCS: 87081; 87804; 99283

== ENCOUNTER 2020-07-16 09:47 | Emergency (ER) | payer SELFPAY ==
--- OUTSIDE RECORDS SUMMARY | 2020-07-16 09:49 | XMS REPORT | Continuity of Care Document ---
:1995 Author Organization [facility] t Address [address] [place] [address] Care Team Providers Name Role Phone Unavailable Unavailable Unavailable Problems This patient has no known problems. Allergies, Adverse Reactions, Alerts This patient has no known allergies or adverse reactions. Medications This patient has no known medications. Procedures This patient has no known procedures. Results This patient has no known results.
[2020-07-16 11:19] LABS: Absolute Lymphocytes (CBC) 2.6 K/uL (0.7-4.9); Basophils % 0.5 % (0-1.3); Hematocrit 39.2 % (36.0-45.0); Lymphocytes % 28.5 % (15.3-44.8); MPV 7.9 fL (7.6-11.3); RBC Red Blood Cell Count 4.86 M/uL (3.86-4.86)
[2020-07-16 11:36] LABS: BUN Blood Urea Nitrogen 8 mg/dL (7-18); Bicarbonate 28 mmol/L (21-32); Glucose Level 99 mg/dL (74-106); Potassium 3.7 mmol/L (3.5-5.1); Sodium Level 140 mmol/L (136-145)
[2020-07-16 11:40] LABS: Urine Blood NEGATIVE (NEG); Urine Glucose NEGATIVE (NEG); Urine Protein NEGATIVE (NEG)
--- NOTE | 2020-07-16 12:13 | EDPHYS ---
Physician Documentation [facility] Name: Althea Harmon Age: 24 yrs Sex: Female : 1995 Arrival Date: 07/16/2020 Time: 09:48 Bed 15 Private MD: ED Physician Aren Lance HPI: 07/16 15:17 This 24 yrs old Female presents to ER via Ambulatory with complaints of kdr Weakness, LightHeaded. 15:17 The patient presents to the emergency department with weakness of the entire body, kdr generalized weakness, Lightheaded, weak and generally fatigued. Onset: The symptoms/episode began/occurred gradually, 3 day(s) ago. Context: occurred at home, occurred while the patient was at rest. Associated signs and symptoms: The patient has no apparent associated signs or symptoms. Severity of symptoms: At their worst the symptoms were very mild in the emergency department the symptoms are unchanged. Patient's baseline: Neuro: alert and fully oriented, Motor: no deficits, Ambulation: walks without assistance, Speech: normal. Current symptoms: Weakness, fatigue . The patient has not experienced similar symptoms in the past. The patient has not recently seen a physician. SHORER: 10:15 LMP N/A - Irregular menses ca1 Historical: - Allergies: 10:15 No Known Allergies; ca1 - Home Meds: 10:15 None [Active]; ca1 - PMHx: 10:15 Depression; Anxiety; ca1 - PSHx: 10:15 None; ca1 - Immunization history:: Adult Immunizations up to date, Flu vaccine is not up to date. - Social history:: Smoking status: Patient denies any tobacco usage or history of. ROS: 15:17 Constitutional: Negative for fever, chills, and weight loss, Eyes: Negative for injury, kdr pain, redness, and discharge, ENT: Negative for injury, pain, and discharge, Neck: Negative for injury, pain, and swelling, Cardiovascular: Negative for chest pain, palpitations, and edema, Respiratory: Negative for shortness of breath, cough, wheezing, and pleuritic chest pain, Abdomen/GI: Negative for abdominal pain, nausea, vomiting, diarrhea, and constipation, Back: Negative for injury and pain, : Negative for injury, bleeding, discharge, and swelling, MS/Extremity: Negative for injury and deformity, Skin: Negative for injury, rash, and discoloration, Psych: Negative for depression, anxiety, suicide ideation, homicidal ideation, and hallucinations, Allergy/Immunology: Negative for hives, rash, and allergies, Endocrine: Negative for neck swelling, polydipsia, polyuria, polyphagia, and marked weight changes, Hematologic/Lymphatic: Negative for swollen nodes, abnormal bleeding, and unusual bruising. 15:17 Neuro: Positive for dizziness, weakness. Exam: 15:17 Constitutional: This is a well developed, well nourished patient who is awake, alert, kdr and in no acute distress. Head/Face: Normocephalic, atraumatic. Eyes: Pupils equal round and reactive to light, extra-ocular motions intact. Lids and lashes normal. Conjunctiva and sclera are non-icteric and not injected. Cornea within normal limits. Periorbital areas with no swelling, redness, or edema. Neck: Trachea midline, no thyromegaly or masses palpated, and no cervical lymphadenopathy. Supple, full range of motion without nuchal rigidity, or vertebral point tenderness. No Meningismus. Chest/axilla: Normal chest wall appearance and motion. Nontender with no deformity. No lesions are appreciated. Cardiovascular: Regular rate and rhythm with a normal S1 and S2. No gallops, murmurs, or rubs. Normal PMI, no JVD. No pulse deficits. Respiratory: Lungs have equal breath sounds bilaterally, clear to auscultation and percussion. No rales, rhonchi or wheezes noted. No increased work of breathing, no retractions or nasal flaring. Abdomen/GI: Soft, non-tender, with normal bowel sounds. No distension or tympany. No guarding or rebound. No evidence of tenderness throughout. Back: No spinal tenderness. No costovertebral tenderness. Full range of motion. Skin: Warm, dry with normal turgor. Normal color with no rashes, no lesions, and no evidence of cellulitis. MS/ Extremity: Pulses equal, no cyanosis. Neurovascular intact. Full, normal range of motion. Neuro: Awake and alert, GCS 15, oriented to person, place, time, and situation. Cranial nerves II-XII grossly intact. Motor strength 5/5 in all extremities. Sensory grossly intact. Cerebellar exam normal. Normal gait. Psych: Awake, alert, with orientation to person, place and time. Behavior, mood, and affect are within normal limits. Vital Signs: 10:00 BP 112 / 71; Pulse 72; Resp 16 S; Temp 97.7(TE); Pulse Ox 100% on R/A; Weight 113.4 kg ca1 (R); Height 5 ft. 2 in. (157.48 cm) (R); Pain 0/10; 11:16 BP 106 / 59; Pulse 68; Resp 16 S; Pulse Ox 100% on R/A; ca1 11:52 BP 107 / 61 Supine; Pulse 77; Resp 16 S; Pulse Ox 100% ; ca1 11:55 BP 100 / 53 Sitting; Pulse 80; Resp 17 S; Pulse Ox 100% on R/A; ca1 11:58 BP 101 / 67 Standing; Pulse 85; Resp 17 S; Pulse Ox 100% on R/A; ca1 12:29 BP 115 / 74; Pulse 76; Resp 15 S; Pulse Ox 100% on R/A; ca1 10:00 Body Mass Index 45.73 (113.40 kg, 157.48 cm) ca1 MDM: 12:12 Patient medically screened. kdr 15:17 Data reviewed: vital signs, nurses notes, lab test result(s). Counseling: I had a kdr detailed discussion with the patient and/or guardian regarding: the historical points, exam findings, and any diagnostic results supporting the discharge/admit diagnosis, lab results, the need for outpatient follow up. 07/16 10:47 Order name: CBC with Diff; Complete Time: 11:39 kdr 07/16 10:47 Order name: Chem 7; Complete Time: 11:39 kdr 07/16 10:47 Order name: Urine Dipstick-Ancillary (obtain specimen); Complete Time: 11:12 kdr 07/16 11:15 Order name: Urine Dipstick--Ancillary (enter results); Complete Time: 12:11 em1 07/16 11:15 Order name: Urine --Ancillary (enter results); Complete Time: 12:11 em1 07/16 11:39 Order name: Orthostatics; Complete Time: 11:58 kdr Administered Medications: No medications were administered Disposition: 07/16/20 12:12 Discharged to Home. Impression: Dizziness and giddiness. - Condition is Stable. - Discharge Instructions: Dizziness, [id number]-[id number]. - Prescriptions for Valium 2 mg Oral Tablet - take 1 tablet by ORAL route every 8 hours As needed; 6 tablet. - Medication Reconciliation Form, Thank You Letter form. - Follow up: Private Physician; When: 2 - 3 days; Reason: If symptoms return, Further diagnostic work-up, Recheck today's complaints, Continuance of care, Re-evaluation by your physician. - Problem is new. - Symptoms have improved. Signatures: Dispatcher [employer] EDMS Aren Lance MD MD [facility] Lisa Pena RN RN ca1 Corrections: (The following items were deleted from the chart) 12:30 12:12 07/16/2020 12:12 Discharged to Home. Impression: Dizziness and giddiness. ca1 Condition is Stable. Forms are Medication Reconciliation Form, Thank You Letter, Antibiotic Education, Prescription Opioid Use. Follow up: Private Physician; When: 2 - 3 days; Reason: If symptoms return, Further diagnostic work-up, Recheck today's complaints, Continuance of care, Re-evaluation by your physician. Problem is new. Symptoms have improved. kdr
--- NOTE | 2020-07-16 12:13 | ER ---
Nurse's Notes [facility] Name: Althea Hramon Age: 24 yrs Sex: Female : 1995 Arrival Date: 07/16/2020 Time: 09:48 Bed 15 Private MD: Diagnosis: Dizziness and giddiness Presentation: 07/16 10:00 Chief complaint: Patient states: Lightheaded and just feeling tired x 2-3 days. No ca1 other complaints at this time. Coronavirus screen: Client denies travel out of the [place] in the last 14 days. fatigue, Client presents with at least one sign or symptom that may indicate coronavirus-19. Standard/surgical mask placed on the client. Provider contacted for isolation considerations. The client denies any previous COVID testing. Ebola Screen: Patient negative for fever greater than or equal to 101.5 degrees Fahrenheit, and additional compatible Ebola Virus Disease symptoms Patient denies exposure to infectious person. Patient denies travel to an Ebola-affected area in the 21 days before illness onset. No symptoms or risks identified at this time. Initial Sepsis Screen: Does the patient meet any 2 criteria? No. Patient's initial sepsis screen is negative. Does the patient have a suspected source of infection? No. Patient's initial sepsis screen is negative. Risk Assessment: Do you want to hurt yourself or someone else? Patient reports no desire to harm self or others. Onset of symptoms was July 16, 2020. 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 - Social history:: Smoking status: Patient denies any tobacco usage or history of. Screenin:05 Abuse screen: Denies threats or abuse. Denies injuries from another. Nutritional ca1 screening: No deficits noted. Tuberculosis screening: No symptoms or risk factors identified. Fall Risk IV access (20 points). Assessment: 10:05 General: Appears in no apparent distress. comfortable, Behavior is calm, cooperative, ca1 appropriate for age. General: Reports fatigue for 2-3 days. Pain: Denies pain. Neuro: Level of Consciousness is awake, alert, obeys commands, Oriented to person, place, time, situation. Cardiovascular: Reports lightheadedness, Heart tones S1 S2 present Capillary refill < 3 seconds Patient's skin is warm and dry. Respiratory: Airway is patent Respiratory effort is even, unlabored, Respiratory pattern is regular, symmetrical, Breath sounds are clear bilaterally. GI: Abdomen is round non-distended, Bowel sounds present X 4 quads. Abd is soft and non tender X 4 quads. : No signs and/or symptoms were reported regarding the genitourinary system. EENT: No signs and/or symptoms were reported regarding the EENT system. Derm: Skin is intact, is healthy with good turgor, Skin is pink, warm \T\ dry. Musculoskeletal: Circulation, motion, and sensation intact. Capillary refill < 3 seconds. 11:16 Reassessment: Patient appears in no apparent distress at this time. Patient and/or ca1 family updated on plan of care and expected duration. Pain level reassessed. Patient is alert, oriented x 3, equal unlabored respirations, skin warm/dry/pink. 11:59 Reassessment: Patient appears in no apparent distress at this time. Patient and/or ca1 family updated on plan of care and expected duration. Pain level reassessed. Patient is alert, oriented x 3, equal unlabored respirations, skin warm/dry/pink. 12:00 Reassessment: Negative orthostatics. Tolerated well. Notified provider. ca1 12:29 Reassessment: Patient appears in no apparent distress at this time. Patient is alert, ca1 oriented x 3, equal unlabored respirations, skin warm/dry/pink. Vital Signs: 10:00 BP 112 / 71; Pulse 72; Resp 16 S; Temp 97.7(TE); Pulse Ox 100% on R/A; Weight 113.4 kg ca1 (R); Height 5 ft. 2 in. (157.48 cm) (R); Pain 0/10; 11:16 BP 106 / 59; Pulse 68; Resp 16 S; Pulse Ox 100% on R/A; ca1 11:52 BP 107 / 61 Supine; Pulse 77; Resp 16 S; Pulse Ox 100% ; ca1 11:55 BP 100 / 53 Sitting; Pulse 80; Resp 17 S; Pulse Ox 100% on R/A; ca1 11:58 BP 101 / 67 Standing; Pulse 85; Resp 17 S; Pulse Ox 100% on R/A; ca1 12:29 BP 115 / 74; Pulse 76; Resp 15 S; Pulse Ox 100% on R/A; ca1 10:00 Body Mass Index 45.73 (113.40 kg, 157.48 cm) ca1 ED Course: 09:48 Patient arrived in ED. ag5 09:57 Lisa Pena, RN is Primary Nurse. ca1 10:00 Arm band placed on right wrist. ca1 10:05 Patient has correct armband on for positive identification. Placed in gown. Bed in low ca1 position. Call light in reach. Side rails up X2. Pulse ox on. NIBP on. Warm blanket given. 10:15 Triage completed. ca1 10:21 Aren Lance MD is Attending Physician. kdr 11:08 No provider procedures requiring assistance completed. Initial lab(s) drawn, by mo, ca1 sent to lab. Inserted saline lock: 20 gauge in right antecubital area, using aseptic technique. Blood collected. 12:30 IV discontinued, intact, bleeding controlled, No redness/swelling at site. Pressure ca1 dressing applied. Administered Medications: No medications were administered Outcome: 12:12 Discharge ordered by . kdr 12:30 Discharged to home ambulatory, with significant other. ca1 12:30 Condition: stable 12:30 Discharge instructions given to patient, Instructed on discharge instructions, follow up and referral plans. no drinking with medication, no driving heavy equipment, medication usage, Demonstrated understanding of instructions, follow-up care, medications, Prescriptions given X 1. 12:30 Patient left the ED. ca1 Signatures: Aren Lance MD MD kdr Lisa Pena RN RN ca1 Deanna Escamilla ag5
[2020-07-16 12:44] VITALS: TEMP 97.7; O2SAT 100
[2020-07-16 12:54] VITALS: BP 115/74
== END 2020-07-16 12:30 | disposition home or self-care (01) ==
LOC: ER 09:47
DX: R42 Dizziness and giddiness (principal)
CPT/HCPCS: 36415; 80048; 81003; 81025; 85025; 99284

== ENCOUNTER 2021-03-26 22:49 | Emergency (ER) | payer SELFPAY ==
--- OUTSIDE RECORDS SUMMARY | 2021-03-26 22:52 | XMS REPORT | Continuity of Care Document ---
:1995 Author Organization [facility] t Address [address] [place] [address] Care Team Providers Name Role Phone Unavailable Unavailable Unavailable Problems This patient has no known problems. Allergies, Adverse Reactions, Alerts This patient has no known allergies or adverse reactions. Medications This patient has no known medications. Procedures This patient has no known procedures. Results This patient has no known results.
[2021-03-27] MEDS ORDERED: NA CHLORIDE 0.9% 1,000 ML ONE (00:17)
[2021-03-27 00:35] LABS: Absolute Lymphocytes (CBC) 3.4 K/uL (0.7-4.9); Basophils % 0.6 % (0-1.3); MPV 8.1 fL (7.6-11.3); RBC Red Blood Cell Count 4.71 M/uL (3.86-4.86)
[2021-03-27 00:48] LABS: Urine Blood Negative (Negative); Urine Glucose Negative (Negative); Urine Protein Negative (Negative); Urine Specific Gravity 1.025 (1.005-1.030)
[2021-03-27 00:55] LABS: Urine Specific Gravity/Preg 1.025 (1.005-1.030)
[2021-03-27 01:04] LABS: ALT/SGPT 27 U/L (12-78); AST/SGOT 17 U/L (15-37); Albumin 3.7 g/dL (3.4-5.0); Alkaline Phosphatase 86 U/L (45-117); BUN Blood Urea Nitrogen 12 mg/dL (7-18); Bicarbonate 28 mmol/L (21-32); Bilirubin Direct < 0.1 mg/dL (0-0.2); Bilirubin Total 0.2 mg/dL (0.2-1.0); Glucose Level 113 mg/dL (74-106); Lipase 146 U/L (73-393); Protein, Total 7.7 g/dL (6.4-8.2); Sodium Level 141 mmol/L (136-145)
[2021-03-27 01:36] LABS: Urine Bacteria 20-50 /HPF (<20); Urine RBC <5 /HPF (NONE SEEN)
[2021-03-27] MEDS ORDERED: metroNIDAZOLE 500 MG TABLET ONE (03:13)
[2021-03-27] MEDS ORDERED: CIPROFLOXACIN HCL 500 MG TAB ONE (03:14)
--- NOTE | 2021-03-27 04:05 | ER ---
Nurse's Notes [facility] Name: Althea Harmon Age: 25 yrs Sex: Female : 1995 Arrival Date: 03/26/2021 Time: 22:54 Bed 20 Private MD: Diagnosis: Mesenteric Adenitis;Colitis Presentation: 03/26 23:34 Chief complaint: Patient states: she started having right lower abdominal pain bb yesterday denies vomiting or diarrhea, states the pain went away but now it is back currently it is 1/10 but when she walks it is much more painful. Coronavirus screen: At this time, the client does not indicate any symptoms associated with coronavirus-19. Ebola Screen: No symptoms or risks identified at this time. Initial Sepsis Screen: Does the patient meet any 2 criteria? No. Patient's initial sepsis screen is negative. Does the patient have a suspected source of infection? No. Patient's initial sepsis screen is negative. Risk Assessment: Do you want to hurt yourself or someone else? Patient reports no desire to harm self or others. Onset of symptoms was March 25, 2021. 23:34 Method Of Arrival: Wheelchair bb 23:34 Acuity: ZENON 3 bb Triage Assessment: 03/27 00:15 General: Appears in no apparent distress. Behavior is calm, cooperative, appropriate rr5 for age. 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 - Social history:: Smoking status: Patient denies any tobacco usage or history of. Screenin/11 00:15 Abuse screen: Denies threats or abuse. Denies injuries from another. Nutritional rr5 screening: No deficits noted. Tuberculosis screening: No symptoms or risk factors identified. Fall Risk IV access (20 points). Total Shah Fall Scale indicates No Risk (0-24 pts). Assessment: 00:15 General: Appears in no apparent distress. uncomfortable, Behavior is calm, cooperative, rr5 appropriate for age. Pain: Complains of pain in abdomen Pain currently is 3 out of 10 on a pain scale. Neuro: Level of Consciousness is awake, alert, obeys commands, Oriented to person, place, time. Cardiovascular: Capillary refill < 3 seconds Patient's skin is warm and dry. Respiratory: Airway is patent Respiratory effort is even, unlabored, Respiratory pattern is regular, symmetrical. GI: Abdomen is round obese, : No signs and/or symptoms were reported regarding the genitourinary system. Derm: Skin temperature is warm. Musculoskeletal: Capillary refill < 3 seconds. 01:00 Reassessment: Patient appears in no apparent distress at this time. Patient is alert, rr5 oriented x 3, equal unlabored respirations, skin warm/dry/pink. 02:00 Reassessment: Patient appears in no apparent distress at this time. Patient is alert, rr5 oriented x 3, equal unlabored respirations, skin warm/dry/pink. awaiting for ct result. 03:00 Reassessment: Patient appears in no apparent distress at this time. Patient is alert, rr5 oriented x 3, equal unlabored respirations, skin warm/dry/pink. awaiting for review. 04:13 Reassessment: Patient appears in no apparent distress at this time. Patient is alert, rr5 oriented x 3, equal unlabored respirations, skin warm/dry/pink. discharge instruction given and explained without complaints made Patient states symptoms have improved. Vital Signs: 03/26 23:34 BP 105 / 41; Pulse 100; Resp 16 S; Temp 97.7(TE); Pulse Ox 100% on R/A; Weight 99.79 kg bb (R); Height 5 ft. 4 in. (162.56 cm) (R); Pain 09/26; 03/27 01:00 BP 113 / 79; Pulse 75; Resp 19; Pulse Ox 98% ; rr5 02:59 BP 114 / 69; Pulse 85; Resp 19; Pulse Ox 98% ; rr5 04:00 BP 116 / 89; Pulse 80; Resp 16; Pulse Ox 98% ; rr5 03/26 23:34 Body Mass Index 37.76 (99.79 kg, 162.56 cm) bb ED Course: 03/26 22:54 Patient arrived in ED. bp1 23:35 Albert Guy NP is PHCP. pm1 23:35 Rashad Alvarado MD is Attending Physician. pm1 23:35 Triage completed. bb 23:35 Arm band placed on Patient placed in an exam room, on a stretcher, on pulse oximetry. bb Family accompanied patient. 03/27 00:14 Donovan Grissom, RN is Primary Nurse. rr5 00:15 Patient has correct armband on for positive identification. Pulse ox on. NIBP on. rr5 00:15 Inserted saline lock: 20 gauge in right forearm, using aseptic technique. Blood rr5 collected. 01:29 CT Abd/Pelvis - IV Contrast Only In Process Unspecified. EDMS 02:59 No provider procedures requiring assistance completed. rr5 04:00 IV discontinued, intact, bleeding controlled, No redness/swelling at site. Pressure rr5 dressing applied. Administered Medications: 00:15 Drug: NS 0.9% 1000 ml Route: IV; Rate: 1000 ml; Site: right forearm; rr5 01:20 Follow up: Response: No adverse reaction; IV Status: Completed infusion; IV Intake: rr5 1000ml 02:58 Drug: Cipro (ciprofloxacin) 500 mg Route: PO; rr5 03:30 Follow up: Response: No adverse reaction rr5 02:58 Drug: Flagyl (metroNIDAZOLE) 500 mg Route: PO; rr5 03:30 Follow up: Response: No adverse reaction rr5 Intake: 01:20 IV: 1000ml; Total: 1000ml. rr5 Outcome: 04:05 Discharge ordered by . 7 04:10 Discharged to home ambulatory, with family. rr5 04:10 Condition: stable 04:10 Discharge instructions given to patient, Instructed on discharge instructions, follow rr5 up and referral plans. medication usage, Demonstrated understanding of instructions, follow-up care, medications, Prescriptions given X 3. 04:11 Patient left the ED. rr5 Signatures: Dispatcher [employer] EDMS Pennie Fung RN RN bb Albert Guy, MANUFACTURING ENGINEERING DIRECTOR MANUFACTURING ENGINEERING DIRECTOR pm1 Donovan Grissom, RN RN rr5 Brina Kat Maurice, MD MD [facility]
--- NOTE | 2021-03-27 04:05 | EDPHYS ---
Physician Documentation [facility] Name: Althea Harmon Age: 25 yrs Sex: Female : 1995 Arrival Date: 03/26/2021 Time: 22:54 Bed 20 Private MD: ED Physician Rashad Alvarado HPI: 03/26 23:45 This 25 yrs old Female presents to ER via Wheelchair with complaints of pm1 Abdominal Pain. 23:45 The patient presents with abdominal pain right lower quadrant. Onset: The pm1 symptoms/episode began/occurred yesterday. The symptoms do not radiate. Associated signs and symptoms: none. The symptoms are described as achy. Modifying factors: The symptoms are alleviated by remaining still, the symptoms are aggravated by walking. Severity of pain: in the emergency department the pain is a 2 / 10. The patient has not experienced similar symptoms in the past. The patient has not recently seen a physician. 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 - Social history:: Smoking status: Patient denies any tobacco usage or history of. ROS: 23:45 Constitutional: Negative for fever, chills, and weight loss, Cardiovascular: Negative pm1 for chest pain, palpitations, and edema, Respiratory: Negative for shortness of breath, cough, wheezing, and pleuritic chest pain. 23:45 Back: Negative for injury and pain, : Negative for injury, bleeding, discharge, and swelling, MS/Extremity: Negative for injury and deformity, Skin: Negative for injury, rash, and discoloration, Neuro: Negative for headache, weakness, numbness, tingling, and seizure. 23:45 Abdomen/GI: Positive for abdominal pain, of the right lower quadrant, Negative for nausea, vomiting, and diarrhea, constipation. 23:45 All other systems are negative. Exam: 23:40 Constitutional: This is a well developed, well nourished patient who is awake, alert, pm1 and in no acute distress. Head/Face: Normocephalic, atraumatic. 23:40 Back: No spinal tenderness. No costovertebral tenderness. Full range of motion. Skin: Warm, dry with normal turgor. Normal color with no rashes, no lesions, and no evidence of cellulitis. MS/ Extremity: Pulses equal, no cyanosis. Neurovascular intact. Full, normal range of motion. 23:40 Eyes: Exam is negative for acute changes, Extraocular movements: intact throughout, Conjunctiva: no acute changes, no injection. 23:40 ENT: Mouth: Lips: normal, Oral mucosa: normal, pink and intact, moist. 23:40 Neck: ROM/movement: is normal, is supple, without pain, no range of motions limitations. 23:40 Cardiovascular: unable to evaluate because patient does not want to be touched by a male provider. 23:40 Respiratory: Exam negative for acute changes, respiratory distress, shortness of breath. 23:40 Abdomen/GI: Inspection: obese Palpation: Patient refused examination with palpation because she is uncomfortable with male providers.. 23:40 Neuro: Exam negative for acute changes, Orientation: is normal, Mentation: is normal, Motor: is normal, moves all fours. Vital Signs: 23:34 BP 105 / 41; Pulse 100; Resp 16 S; Temp 97.7(TE); Pulse Ox 100% on R/A; Weight 99.79 kg bb (R); Height 5 ft. 4 in. (162.56 cm) (R); Pain 09/26; 03/27 01:00 BP 113 / 79; Pulse 75; Resp 19; Pulse Ox 98% ; rr5 02:59 BP 114 / 69; Pulse 85; Resp 19; Pulse Ox 98% ; rr5 04:00 BP 116 / 89; Pulse 80; Resp 16; Pulse Ox 98% ; rr5 03/26 23:34 Body Mass Index 37.76 (99.79 kg, 162.56 cm) bb MDM: 03/26 23:38 Patient medically screened. pm1 03/26 23:40 Order name: Basic Metabolic Panel; Complete Time: 01:05 pm1 03/26 23:40 Order name: CBC with Diff; Complete Time: 01:05 pm1 03/26 23:40 Order name: Hepatic Function; Complete Time: 01:05 pm1 03/26 23:40 Order name: Lipase; Complete Time: 01:05 pm1 03/26 23:40 Order name: Urine Microscopic Only; Complete Time: 01:37 pm1 03/27 00:47 Order name: Urine Dipstick-Ancillary; Complete Time: 01:05 EDMS 03/26 23:40 Order name: IV Saline Lock; Complete Time: 00:15 pm1 03/26 23:40 Order name: Labs collected and sent; Complete Time: 00:15 pm1 03/26 23:40 Order name: CT Abd/Pelvis - IV Contrast Only pm1 03/27 00:47 Order name: Urine --Ancillary (enter results); Complete Time: 01:05 tt3 03/27 01:37 Order name: Urine Culture EDDC 03/26 23:40 Order name: Urine Dipstick-Ancillary (obtain specimen); Complete Time: 01:29 pm1 03/26 23:40 Order name: Urine Test (obtain specimen); Complete Time: 01:29 pm1 Administered Medications: 03/27 00:15 Drug: NS 0.9% 1000 ml Route: IV; Rate: 1000 ml; Site: right forearm; rr5 01:20 Follow up: Response: No adverse reaction; IV Status: Completed infusion; IV Intake: rr5 1000ml 02:58 Drug: Cipro (ciprofloxacin) 500 mg Route: PO; rr5 03:30 Follow up: Response: No adverse reaction rr5 02:58 Drug: Flagyl (metroNIDAZOLE) 500 mg Route: PO; rr5 03:30 Follow up: Response: No adverse reaction rr5 Disposition: 07:28 Co-signature as Attending Physician, Rashad Alvarado MD. [facility] Disposition Summary: 03/27/21 04:05 Discharge Ordered Location: Home [facility] Problem: new [facility] Symptoms: have improved [facility] Condition: Stable [facility] Diagnosis - Mesenteric Adenitis [facility] - Colitis [facility] Followup: [facility] - With: Private Physician - When: 1 - 2 days - Reason: Worsening of condition, Recheck today's complaints, Continuance of care, Re-evaluation by your physician Discharge Instructions: - Discharge Summary Sheet 7 - Colitis 7 - Mesenteric Adenitis, Adult [facility] Forms: - Medication Reconciliation Form [facility] - Thank You Letter [facility] - Antibiotic Education [facility] - Prescription Opioid Use [facility] Prescriptions: - Flagyl 500 mg Oral Tablet - take 1 tablet by ORAL route every 8 hours for 7 days; 21 tablet; Refills: 0, [facility] Product Selection Permitted - Cipro 500 mg Oral Tablet - take 1 tablet by ORAL route every 12 hours for 7 days; 14 tablet; Refills: 0, [facility] Product Selection Permitted - dicyclomine 20 mg Oral Tablet - take 1 tablet by ORAL route 4 times per day As needed; 20 tablet; Refills: 0, 7 Product Selection Permitted Signatures: Dispatcher [employer] Pennie Flores RN RN Albert Villagran, MACHINIST INSTRUCTOR MACHINIST INSTRUCTOR pm1 Donovan Grissom RN RN rr5 Rashad Alvarado MD MD 7
[2021-03-27 04:17] VITALS: TEMP 97.7
[2021-03-27 04:19] VITALS: BP 114/69; O2SAT 98
--- NOTE | 2021-03-28 11:57 | RAD REPORT ---
EXAM DESCRIPTION: CT - Abdomen Pelvis W Contrast - 03/27/2021 6:58 am CLINICAL HISTORY: ABD PAIN COMPARISON: None Available. TECHNIQUE: CT of the abdomen and pelvis performed following IV administration of . This exam was per formed according to our departmental dose-optimization program, which includes automated exposure con trol, adjustment of the mA and/or kV according to patient size and/or use of iterative reconstruction technique. FINDINGS: Lung Bases: The visualized lung bases are clear. Bones: No destructive bone lesions identified. Abdomen: Liver: The liver has normal size and density. No intrahepatic biliary dilatation. Gallbladder: No calcified gallstones. Spleen, Pancreas, and Adrenal Glands: The spleen, pancreas, and adrenal glands are unremarkable. Kidneys: No hydronephrosis or obstructing calculus. Vasculature: The aorta and IVC have normal caliber and position. The portal vein is patent. The pro ximal visceral and renal arteries are patent. Stomach: The stomach and duodenum have normal course. Other: No free intraperitoneal air. Mild mesenteric lymphadenopathy. Pelvis: Bladder: Urinary bladder is unremarkable. Bowel: No dilated loops of large or small bowel. Long segment mild wall thickening of the descendin g and sigmoid colon. Appendix: Normal appendix. Pelvis: Uterus is not enlarged. IMPRESSION: 1. Long segment mild wall thickening of the descending and sigmoid colon. This may be seen with mild nonspecific colitis. 2. Mild mesenteric lymphadenopathy. This may be reactive. Electronically signed by: Andrew Toledo 03/27/2021 2:18 AM CDT Due to temporary technical issues with the PACS/Fluency reporting system, reports are being signed by the in house radiologist without review as a courtesy to ensure prompt reporting. The interpreting r adiologist is fully responsible for the content of the report.
== END 2021-03-27 04:11 | disposition home or self-care (01) ==
LOC: ER 22:49
DX: I88.0 Nonspecific mesenteric lymphadenitis (principal); K52.9 Noninfective gastroenteritis and colitis, unspecified; F41.8 Other specified anxiety disorders
CPT/HCPCS: 36415; 74177; 80048; 80076; 81003; 81015; 81025; 83690; 85025; 87086; 87088; 96360; 99284; Q9967

== ENCOUNTER 2021-12-26 11:08 | Emergency (ER) | payer SELFPAY ==
--- OUTSIDE RECORDS SUMMARY | 2021-12-26 11:12 | XMS REPORT | Continuity of Care Document ---
:1995 Author Organization [facility] t Address [address] [place] [address] Care Team Providers Name Role Phone Alejandro [facility] Primary Care Physic anabela Ebrahim ROLL WINDER Attending Clinician Problems Condition Condition Condition Status Onset Resolution Last Treating Co mments Source Name Details Category Date Date Treatment Clinician Date No known No known Disease Unive rs active active ity of problems problems [facility] Allergies, Adverse Reactions, Alerts Allergy Allergy Status Severity Reaction(s) Onset Inactive Treating Comm ents Source Name Type Date Date Clinician NO KNOWN Drug Active Univers ALLERGIE Class ity of S [facility] Social History Social Habit Start Date Stop Date Quantity Comments Source Exposure to Not sure [facility] SARS-CoV-2 (event) Medica l Branch Sex Assigned At [birth year] [facility] 00:00:00 00:00:00 [facility] Smoking Status Start Date Stop Date Source Unknown if ever smoked [facility] Medications Ordered Filled Start Stop Current Ordering Indication Dosage Frequency Signature Comments Components Source Medication Medication Date Date Medication? Clinician (SIG) Name Name cyclobenzap 2018-09 Yes [id number] 5mg Take 1 Univers rine 5 mg 0-26 tablet by ity o f tablet 00:00: mouth 3 00 (three) Medical times Branch daily. traMADol 2018-09 Yes [id number] 50mg Take 1 Un hermila (ULTRAM) 50 0-26 tablet by ity of mg tablet 00:00: mouth [place] 00 every 8 Medical (eight) Branch hours as needed for Pain (scale 4-6). cyclobenzap 2018-09 Yes [id number] 5mg Take 1 Univers rine 5 mg 0-26 tablet by ity o f tablet 00:00: mouth 3 00 (three) Medical times Branch daily. traMADol 2018-09 Yes [id number] 50mg Take 1 Un hermila (ULTRAM) 50 0-26 tablet by ity of mg tablet 00:00: mouth 00 every 8 Medical (eight) Branch hours as needed for Pain (scale 4-6). Vital Signs Vital Name Observation Time Observation Value Comments Source Systolic blood 2021-05-19 00:13:00 123 mm[facility]Hg[facility] Diastolic blood 2021-05-19 00:13:00 76 mm[Hg] [facility] Heart rate 2021-05-19 00:13:00 97 /min [facility] Body temperature 2021-05-19 00:13:00 37.39 [facility] Respiratory rate 2021-05-19 00:13:00 18 /min [facility] Body weight 2021-05-19 00:13:00 116.62 kg [facility] Oxygen saturation in 2021-05-19 00:13:00 99 /min [facility] Arterial blood by [facility] Pulse oximetry [place] Procedures Procedure Date / Time Performed Performing Clinician Sour e XR WRIST 3+ VW RIGHT 2021-05-19 00:32:35 Khal[facility] NOTICE OF PRIVACY 2021-05-19 00:07:09 Doctor Unassigned, No [facility] CONSENT/REFUSAL FOR 2021-05-19 00:06:33 Doctor Unassigned, No Un [facility] DIAGNOSIS AND Name Medical Branch TREATMENT Encounters Start End Encounter Admission Attending Care Care Encounter Source Date/Time Date/Time Type Type Clinicians Facility Department ID 2021-05-18 2021-05-18 Emergency CALOS [facility] [id number] Univers 19:14:00 20:18:00 Khalif Hopper [id number] i ty [facility] [id number] [facility] [id number] [place] [id number] Branch 2021-05-18 2021-05-18 Emergency X [facility] ERT [id number] Univers 19:06:00 19:06:00 ity [facility] Results This patient has no known results.
[2021-12-26 13:36] LABS: SARS-COV-2 RT PCR NEGATIVE (NEGATIVE)
[2021-12-26 14:53] LABS: Urine Blood Negative (Negative); Urine Glucose Negative (Negative); Urine Protein Negative (Negative); Urine pH 6.5 (5.0-7.0)
[2021-12-26] MEDS ORDERED: NA CHLORIDE 0.9% 1,000 ML ONE (16:51)
[2021-12-26 16:54] LABS: Absolute Lymphocytes (CBC) 1.4 K/uL (0.7-4.9); Hematocrit 41.2 % (36.0-45.0); Lymphocytes % 17.7 % (15.3-44.8); MPV 7.6 fL (7.6-11.3); RBC Red Blood Cell Count 5.06 M/uL (3.86-4.86)
[2021-12-26 17:28] LABS: ALT/SGPT 29 U/L (12-78); AST/SGOT 16 U/L (15-37); Albumin 3.9 g/dL (3.4-5.0); Alkaline Phosphatase 94 U/L (45-117); BUN Blood Urea Nitrogen 5 mg/dL (7-18); Bicarbonate 22 mmol/L (21-32); Bilirubin Total 0.6 mg/dL (0.2-1.0); Glucose Level 110 mg/dL (74-106); Lipase 98 U/L (73-393); Potassium 3.6 mmol/L (3.5-5.1); Sodium Level 137 mmol/L (136-145)
--- NOTE | 2021-12-26 17:45 | EDPHYS ---
Physician Documentation [facility] Name: Althea Harmon Age: 26 yrs Sex: Female : 1995 Arrival Date: 12/26/2021 Time: 11:11 Bed 11 Private MD: ED Physician Delgado Garcia HPI: 12/26 11:58 This 26 yrs old Female presents to ER via Ambulatory with complaints of jmm Abdominal Pain, Diarrhea, Nausea. 11:58 The patient presents to the emergency department with nausea, diarrhea. Onset: The jmm symptoms/episode began/occurred acutely, 1 day(s) ago. Possible causes: unknown. The symptoms are aggravated by nothing. The symptoms are alleviated by nothing. Associated signs and symptoms: Pertinent positives: nausea, Pertinent negatives: fever, vomiting. The patient has experienced a previous episode. REPOSSESSOR: 11:55 LMP 11/25/2021 jd3 Historical: - Allergies: 11:55 No Known Allergies; jd3 - Home Meds: 11:55 None [Active]; jd3 - PMHx: 11:55 Depression; Anxiety; jd3 - PSHx: 11:55 None; jd3 - Immunization history:: Adult Immunizations up to date, Client reports receiving the 2nd dose of the Covid vaccine, Flu vaccine is not up to date. - Social history:: Smoking status: Patient/guardian denies using tobacco, Stopped _ months ago 1. ROS: 11:58 Constitutional: Negative for fever, chills, and weight loss, Cardiovascular: Negative jmm for chest pain, palpitations, and edema, Respiratory: Negative for shortness of breath, cough, wheezing, and pleuritic chest pain. 11:58 Abdomen/GI: Positive for nausea, diarrhea. 11:58 All other systems are negative. Exam: 11:58 Constitutional: This is a well developed, well nourished patient who is awake, alert, jmm and in no acute distress. Head/Face: atraumatic. Eyes: EOMI, no conjunctival erythema appreciated ENT: Moist Mucus Membranes Neck: Trachea midline, Supple Chest/axilla: Normal chest wall appearance and motion. Cardiovascular: Regular rate and rhythm. No edema appreciated Respiratory: Normal respirations, no respiratory distress appreciated 11:58 Back: Normal ROM Skin: General appearance color normal MS/ Extremity: Moves all extremities, no obvious deformities appreciated, no edema noted to the lower extremities Neuro: Awake and alert Psych: Behavior is normal, Mood is normal, Patient is cooperative and pleasant 11:58 Abdomen/GI: Inspection: obese Bowel sounds: normal, Palpation: soft, nontender, in all quadrants. Vital Signs: 11:55 BP 114 / 78; Pulse 124; Resp 19 S; Temp 98.8(TE); Pulse Ox 99% on R/A; Weight 106.59 kg jd3 (R); Height 5 ft. 3 in. (160.02 cm) (R); Pain 5/10; 16:49 Pulse 109; Resp 16; Pulse Ox 97% ; Pain 0/10; ss 11:55 Body Mass Index 41.63 (106.59 kg, 160.02 cm) jd3 MDM: 12:08 Patient medically screened. [facility] 17:39 Data reviewed: vital signs, nurses notes. Counseling: I had a detailed discussion with gabriela the patient and/or guardian regarding: the historical points, exam findings, and any diagnostic results supporting the discharge/admit diagnosis, lab results, the need for outpatient follow up, to return to the emergency department if symptoms worsen or persist or if there are any questions or concerns that arise at home. ED course: Patient states feeling better. No abd pain on palpation. i do not suspect an acute intrabdominal process. Patient given strict return precautions. Patient understood and agrees with the plan if care. . 04 11:58 Order name: COVID-19/FLU A+B (Document "Date of Onset" if Symptomatic); Complete Time: jd3 13:39 12/26 12:00 Order name: CBC with Diff; Complete Time: 17:02 [facility] 12/26 12:00 Order name: CMP; Complete Time: 17:33 [facility] 12/26 12:00 Order name: Lipase; Complete Time: 17:33 [facility] 12/26 14:53 Order name: Urine Dipstick-Ancillary; Complete Time: 14:54 [facility] 12/26 14:57 Order name: Urine --Ancillary (enter results); Complete Time: 16:03 bd 12/26 12:00 Order name: IV Saline Lock; Complete Time: 16:41 [facility] 12/26 12:00 Order name: Labs collected and sent; Complete Time: 15:13 [facility] 12/26 12:00 Order name: Urine Dipstick-Ancillary (obtain specimen); Complete Time: 15:06 [facility] 12/26 12:00 Order name: Urine Test (obtain specimen); Complete Time: 15:06 [facility] 12/26 15:26 Order name: Labs - recollect needed: recollect green and lavender tubes; Complete Time: bd 16:41 Administered Medications: 16:48 Drug: NS 0.9% 1000 ml Route: IV; Rate: 1 bolus; Site: right antecubital; ss 17:51 Follow up: IV Status: Completed infusion; IV Intake: 1000ml ss 16:49 Not Given (Patient Refused): Zofran (Ondansetron) 4 mg IVP once; over 2 minutes ss Disposition: 19:16 Co-signature as Attending Physician, Delgado Garcia MD. rn Disposition Summary: 12/26/21 17:44 Discharge Ordered Location: Home [facility] Condition: Stable [facility] Diagnosis - Nausea [facility] - Diarrhea, unspecified [facility] Followup: [facility] - With: Private Physician - When: 2 - 3 days - Reason: Recheck today's complaints, Continuance of care, Re-evaluation by your physician Discharge Instructions: - Discharge Summary Sheet [facility] - Food Choices to Help Relieve Diarrhea, Adult [facility] Forms: - Medication Reconciliation Form [facility] - Thank You Letter [facility] - Antibiotic Education [facility] - Prescription Opioid Use [facility] Prescriptions: - ondansetron 4 mg Oral tablet,disintegrating - take 1 tablet by ORAL route every 4-6 hours; 30 tablet; Refills: 0, Product [facility] Selection Permitted - dicyclomine 20 mg Oral Tablet - take 1 tablet by ORAL route 4 times per day; 30 tablet; Refills: 0, Product [facility] Selection Permitted Signatures: Dispatcher [employer] EDEdel Mayer Joel, PA PA [facility] Delgado Garcia MD MD rn Smirch, Shelby, RN RN Sharad Hoffmann RN RN jd3
--- NOTE | 2021-12-26 17:45 | ER ---
Nurse's Notes [facility] Name: Althea Harmon Age: 26 yrs Sex: Female : 1995 Arrival Date: 12/26/2021 Time: 11:11 Bed 11 Private MD: Diagnosis: Nausea;Diarrhea, unspecified Presentation: 12/26 11:53 Chief complaint: Patient states: "last night I woke up with stomach pain with non stop jd3 diarrhea with body aches. Nausea as well.". Coronavirus screen: diarrhea, Client presents with at least one sign or symptom that may indicate coronavirus-19. Standard/surgical mask placed on the client. Provider contacted for isolation considerations. Ebola Screen: No symptoms or risks identified at this time. Initial Sepsis Screen: Does the patient meet any 2 criteria? No. Patient's initial sepsis screen is negative. Does the patient have a suspected source of infection? No. Patient's initial sepsis screen is negative. Risk Assessment: Do you want to hurt yourself or someone else? Patient reports no desire to harm self or others. Onset of symptoms was December 25, 2021. 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 - Social history:: Smoking status: Patient/guardian denies using tobacco, Stopped _ months ago 1. Screenin:52 Abuse screen: Denies threats or abuse. Denies injuries from another. Nutritional ss screening: No deficits noted. Tuberculosis screening: Never had TB. Fall Risk None identified. Assessment: 14:20 General: Appears in no apparent distress. comfortable, Behavior is calm, cooperative, ss Reports feeling ill for 12-24 hours, Denies fever. Pain: Denies pain. Neuro: Level of Consciousness is awake, alert, obeys commands, Oriented to person, place, time, situation. Respiratory: Airway is patent Respiratory effort is even, unlabored, Respiratory pattern is regular, symmetrical. GI: Abdomen is non-distended, obese, Bowel sounds present X 4 quads. Abd is soft and non tender X 4 quads. Reports diarrhea. Derm: Skin is intact, is healthy with good turgor, Skin is dry, Skin is pink, warm \\T\\ dry. normal. Musculoskeletal: Circulation, motion, and sensation intact. Range of motion: intact in all extremities, Swelling absent. 15:53 Reassessment: recollect requested for all labs. Phlebotomy called. Kristin states she will ss send some one to collect. 17:17 Reassessment: Patient appears in no apparent distress at this time. Patient and/or ss family updated on plan of care and expected duration. Pain level reassessed. Patient is alert, oriented x 3, equal unlabored respirations, skin warm/dry/pink. Patient denies pain at this time. Patient states feeling better. Vital Signs: 11:55 BP 114 / 78; Pulse 124; Resp 19 S; Temp 98.8(TE); Pulse Ox 99% on R/A; Weight 106.59 kg jd3 (R); Height 5 ft. 3 in. (160.02 cm) (R); Pain 5/10; 16:49 Pulse 109; Resp 16; Pulse Ox 97% ; Pain 0/10; ss 11:55 Body Mass Index 41.63 (106.59 kg, 160.02 cm) j ED Course: 11:11 Patient arrived in ED. mr 11:18 Kevin Donis PA is PHCP. [facility] 11:18 Delgado Garcia MD is Attending Physician. [facility] 11:54 Triage completed. jd3 11:56 Arm band placed on. jd3 14:45 Yecenia Seaman, MAGALY is Primary Nurse. ss 15:05 Missed attempt(s): 22 gauge in right forearm. Bleeding controlled, band aid applied, aa5 catheter tip intact. 15:09 Initial lab(s) drawn, by me, sent to lab. Missed attempt(s): 22 gauge in left aa5 antecubital area. Bleeding controlled, band aid applied, catheter tip intact. 15:52 Patient has correct armband on for positive identification. Bed in low position. Call ss light in reach. 16:38 Lab(s) recollected, by me, sent to lab. Inserted saline lock: 22 gauge in right dh3 antecubital area, using aseptic technique. Blood collected. 17:46 No provider procedures requiring assistance completed. IV discontinued, intact, ss bleeding controlled, No redness/swelling at site. Pressure dressing applied. Administered Medications: 16:48 Drug: NS 0.9% 1000 ml Route: IV; Rate: 1 bolus; Site: right antecubital; ss 17:51 Follow up: IV Status: Completed infusion; IV Intake: 1000ml ss 16:49 Not Given (Patient Refused): Zofran (Ondansetron) 4 mg IVP once; over 2 minutes ss Intake: 17:51 IV: 1000ml; Total: 1000ml. Outcome: 17:44 Discharge ordered by . [facility] 17:46 Discharged to home ambulatory. 17:46 Condition: good 17:46 Discharge instructions given to patient, Instructed on discharge instructions, follow up and referral plans. medication usage, Demonstrated understanding of instructions, follow-up care, medications, Prescriptions given X 2. 17:51 Patient left the ED. ss Signatures: Kevin Donis PA PA jmm Rivera, Mary mr RoseChantelle, RN RN aa5 Yecenia Seaman RN RN Daphney Garces [facility] Sharad Collazo RN RN jd3
[2021-12-26 20:58] VITALS: BP 114/78; TEMP 98.8
[2021-12-26 20:59] VITALS: O2SAT 97
== END 2021-12-26 17:51 | disposition home or self-care (01) ==
LOC: ER 11:08
DX: R11.0 Nausea (principal); R19.7 Diarrhea, unspecified; Z20.822 Contact with and (suspected) exposure to COVID-19
CPT/HCPCS: 0240U; 36415; 80053; 81003; 81025; 83690; 85025; 96360; 99284; J7030

== ENCOUNTER 2023-08-14 12:36 | Emergency (ER) | payer SELFPAY ==
--- OUTSIDE RECORDS SUMMARY | 2023-08-14 12:38 | XMS REPORT | Continuity of Care Document ---
:1995 Author Organization [facility] t Address [address] [place] [address] Care Team Providers Name Role Phone Alejandro York [facility], [facility] Primary Care P hysician Khalif Giron Attending Clinician Problems Condition Condition Condition Status Onset Resolution Last Treating Co mments Source Name Details Category Date Date Treatment Clinician Date No known No known Disease Unive rs active active ity of problems problems [facility] Allergies, Adverse Reactions, Alerts Allergy Allergy Status Severity Reaction(s) Onset Inactive Treating Comm ents Source Name Type Date Date Clinician NO KNOWN Drug Active Univers ALLERGIE Class ity of S [facility] Social History Social Habit Start Date Stop Date Quantity Comments Source Exposure to Not sure [facility] SARS-CoV-2 (event) Medica l Branch Sex Assigned At [birth year] [facility] 00:00:00 00:00:00 [facility] Smoking Status Start Date Stop Date Source Unknown if ever smoked [facility] Medications Ordered Filled Start Stop Current Ordering Indication Dosage Frequency Signature Comments Components Source Medication Medication Date Date Medication? Clinician (SIG) Name Name cyclobenzap 2018-09 Yes [id number] 5mg Take 1 Univers rine 5 mg 0-26 tablet by ity o f tablet 00:00: mouth 3 [place] 00 (three) Medical times Branch daily. traMADol 2018-09 Yes [id number] 50mg Take 1 Un hermila (ULTRAM) 50 0-26 tablet by ity of mg tablet 00:00: mouth [place] 00 every 8 Medical (eight) Branch hours as needed for Pain (scale 4-6). cyclobenzap 2018-09 Yes [id number] 5mg Take 1 Univers rine 5 mg 0-26 tablet by ity o f tablet 00:00: mouth 3 [place] 00 (three) Medical times Branch daily. traMADol 2018-09 Yes [id number] 50mg Take 1 Un hermila (ULTRAM) 50 0-26 tablet by ity of mg tablet 00:00: mouth [place] 00 every 8 Medical (eight) Branch hours as needed for Pain (scale 4-6). Vital Signs Vital Name Observation Time Observation Value Comments Source Systolic blood 2021-05-19 00:13:00 123 mm[Hg] [facility] Diastolic blood 2021-05-19 00:13:00 76 mm[Hg] [facility] Heart rate 2021-05-19 00:13:00 97 /min [facility] Body temperature 2021-05-19 00:13:00 37.39 Jimena [facility] Respiratory rate 2021-05-19 00:13:00 18 /min [facility] Body weight 2021-05-19 00:13:00 116.62 kg [facility] Oxygen saturation in 2021-05-19 00:13:00 99 /min [facility] Arterial blood by [facility] Pulse oximetry Branch Procedures Procedure Date / Time Performed Performing Clinician Sour e XR WRIST 3+ VW RIGHT 2021-05-19 00:32:35 Khalif Stanford [facility] NOTICE OF PRIVACY 2021-05-19 00:07:09 Doctor Unassigned, No [facility] CONSENT/REFUSAL FOR 2021-05-19 00:06:33 Doctor Unassigned, No [facility] DIAGNOSIS AND Name Medical Branch TREATMENT Encounters Start End Encounter Admission Attending Care Care Encounter Source Date/Time Date/Time Type Type Clinicians Facility Department ID 2021-05-18 2021-05-18 Emergency CALOS Stanford [id number] Univers 19:14:00 20:18:00 Khalif Hopper [id number] i [facility] [id number] [facility] [id number] [place] [id number] Branch 2021-05-18 2021-05-18 Emergency X [facility] ERT [id number] Univers 19:06:00 19:06:00 ity of [facility] Results This patient has no known results.
--- NOTE | 2023-08-14 12:51 | EDPHYS ---
Physician Documentation [facility] Name: Althea Harmon Age: 28 yrs Sex: Female : 1995 Arrival Date: 08/14/2023 Time: 12:36 Bed IW6 Private MD: ED Physician Bakari Rogel HPI: 08/14 13:24 This 28 yrs old Female presents to ER via Ambulatory with complaints of Wrist kb Pain. 13:24 Patient is a 28-year-old female with no medical history who presents for right wrist kb pain that started 3 days ago. Denies injury or trauma. States this happened 1 to 2 years ago and she was told it was a flareup. Patient reports she does not have pain at all times is just with certain movements.. Historical: - Allergies: 13:05 No Known Allergies; aa5 - PMHx: 13:05 Anxiety; Depression; aa5 - Immunization history:: Adult Immunizations unknown. - Social history:: Smoking status: Patient reports the use of cigarette tobacco products, denies chronic smoking, but will smoke occasionally. ROS: 13:21 Constitutional: Negative for fever, chills, and weight loss, kb 13:21 MS/extremity: Positive for pain, of the right wrist, 13:21 All other systems are negative, Exam: 13:21 Constitutional: This is a well developed, well nourished patient who is awake, alert, kb and in no acute distress. Head/Face: Normocephalic, atraumatic. ENT: Moist Mucous membranes Respiratory: Respirations even and unlabored. No increased work of breathing. Talking in full sentences Skin: Warm, dry with normal turgor. Normal color. Neuro: Awake and alert, GCS 15, oriented to person, place, time, and situation. Moves all extremities. Normal gait. 13:21 Musculoskeletal/extremity: Extremities: grossly normal except: noted in the right wrist: pain, ROM: intact in all extremities, Circulation is intact in all extremities. Sensation intact. Vital Signs: 13:05 BP 121 / 80; Pulse 67; Resp 16 S; Temp 98(TE); Pulse Ox 100% on R/A; aa5 MDM: 12:40 Patient medically screened. kb 13:22 Differential diagnosis: dislocation, closed fracture, contusion, tendonitis. Data kb reviewed: vital signs, nurses notes. Test considered but Not performed: X-ray: x-ray wrist considered, but pt has no tenderness, full ROM and no injury. Counseling: I had a detailed discussion with the patient and/or guardian regarding the historical points, exam findings, and any diagnostic results supporting the discharge/admit diagnosis, the need for outpatient follow up, a orthopedic surgeon, to return to the emergency department if symptoms worsen or persist or if there are any questions or concerns that arise at home. Administered Medications: No medications were administered Disposition: 15:30 I was immediately available on-site in the Emergency Department for consultation in the ms3 care of the patient. Disposition Summary: 08/14/23 12:50 Discharge Ordered Notes: Location: Home kb Condition: Stable kb Diagnosis - Pain in right wrist kb Followup: kb - With: Emergency Department - When: As needed - Reason: Worsening of condition Followup: kb - With: Private Physician - When: 2 - 3 days - Reason: Recheck today's complaints, Continuance of care, Re-evaluation by your physician Discharge Instructions: - Discharge Summary Sheet kb - Wrist Pain, Adult, [id number] kb Forms: - Medication Reconciliation Form kb - Thank You Letter kb - Antibiotic Education kb - Prescription Opioid Use kb - Patient Portal Instructions kb - Leadership Thank You Letter kb Prescriptions: - Prednisone 20 mg Oral Tablet - take 1 tablet ORAL route once daily for 5 days; 5 tablet; Refills: 0, Product kb Selection Permitted Signatures: Naty Mehta, AMARILIS OLIVER-Chantelle Mejía RN RN aa5 Bakari Rogel DO DO ms3 Corrections: (The following items were deleted from the chart) 13:06 13:05 Social history: Smoking status: Patient denies any tobacco usage or history of. aa5 aa5
--- NOTE | 2023-08-14 13:12 | ER ---
Nurse's Notes [facility] Name: Althea Harmon Age: 28 yrs Sex: Female : 1995 Arrival Date: 08/14/2023 Time: 12:36 Bed IW6 Private MD: Diagnosis: Pain in right wrist Presentation: 08/14 13:05 Chief complaint: Patient states: right wrist pain, denies known injury. Coronavirus aa5 screen: At this time, the client does not indicate any symptoms associated with coronavirus-19. Ebola Screen: Patient denies travel to an Ebola-affected area in the 21 days before illness onset. Initial Sepsis Screen: Does the patient meet any 2 criteria? No. Patient's initial sepsis screen is negative. Does the patient have a suspected source of infection? No. Patient's initial sepsis screen is negative. Risk Assessment: Do you want to hurt yourself or someone else? Patient reports no desire to harm self or others. Onset of symptoms was July 2023. 13:05 Method Of Arrival: Ambulatory aa5 13:05 Acuity: ZENON 5 aa5 Historical: - Allergies: 13:05 No Known Allergies; aa5 - PMHx: 13:05 Anxiety; Depression; aa5 - Immunization history:: Adult Immunizations unknown. - Social history:: Smoking status: Patient reports the use of cigarette tobacco products, denies chronic smoking, but will smoke occasionally. Assessment: 13:10 Reassessment: Patient is alert, oriented x 3, equal unlabored respirations, skin aa5 warm/dry/pink. Vital Signs: 13:05 BP 121 / 80; Pulse 67; Resp 16 S; Temp 98(TE); Pulse Ox 100% on R/A; aa5 ED Course: 12:37 Patient arrived in ED. rg4 12:40 Naty Mehta FNP-C is [facility]. kb 12:40 Bakari Rogel DO is Attending Physician. kb 13:05 Triage completed. aa5 13:05 Arm band placed on. aa5 13:11 No provider procedures requiring assistance completed. Patient did not have IV access aa5 during this emergency room visit. Administered Medications: No medications were administered Medication: 13:11 VIS not applicable for this client. aa5 Outcome: 12:50 Discharge ordered by . kb 13:10 Discharged to home ambulatory, aa5 13:10 Condition: stable 13:10 Discharge instructions given to patient, Instructed on discharge instructions, follow up and referral plans. medication usage, Demonstrated understanding of instructions, follow-up care, medications, Prescriptions given X 1, 13:11 Patient left the ED. aa5 Signatures: Naty Mehta, OFFICE SERVICES REPRESENTATIVE-C OFFICE SERVICES REPRESENTATIVE-Chantelle Mejía RN RN aa5 Danae Ovalle rg4 Corrections: (The following items were deleted from the chart) 13:06 13:05 Social history: Smoking status: Patient denies any tobacco usage or history of. aa5 aa5
[2023-08-14 13:31] VITALS: BP 121/80; TEMP 98; O2SAT 100
== END 2023-08-14 13:11 | disposition home or self-care (01) ==
LOC: ER 12:36
DX: M25.531 Pain in right wrist (principal)
CPT/HCPCS: 99283

== ENCOUNTER → 2023-11-26 | Emergency (ER) | payer SELFPAY ==
--- OUTSIDE RECORDS SUMMARY | 2023-11-26 09:12 | XMS REPORT | Continuity of Care Document ---
Author Name Unknown Address [address]. [address] [place] [address] [facility] thconnect Address [address] [place] [address] Care Team Providers Care Yacht Master Name Role Phone Alejandro York [facility] Care Physician Khalif Giron Attending Clinician Problems Condition Name Condition Details Condition Category Status Onset Date Resolution Date Last Treatment Date Treating Clinician Comments Source No known active problems No known active problems Disease [facility] Allergies, Adverse Reactions, Alerts Allergy Name Allergy Type Status Severity Reaction(s) Onset Date Inactive Date Treating Clinician Comments Source NO KNOWN ALLERGIE S Drug Class Active [facility] Social History Social Habit Start Date Stop Date Quantity Comments Source Exposure to SARS-CoV-2 (event) Not sure [facility] Sex Assigned At 1995 00:00:00 1995 00:00:00 [facility] Smoking Status Start Date Stop Date Source Unknown if ever smoked [facility] Medications Ordered Medication Name Filled Medication Name Start Date Stop Date Current Medication? Ordering Clinician Indication Dosage Frequency Signature (SIG) Comments Components Source cyclobenzap rine 5 mg tablet 2018-09 00:00: 00 Yes [id number] 5mg Take 1 tablet by mouth 3 (three) times daily. [facility] traMADol (ULTRAM) 50 mg tablet 2018-09 00:00: 00 Yes [id number] 50mg Take 1 tablet by mouth every 8 (eight) hours as needed for Pain (scale 4-6). [facility] cyclobenzap rine 5 mg tablet 2018-09 00:00: 00 Yes [id number] 5mg Take 1 tablet by mouth 3 (three) times daily. [facility] traMADol (ULTRAM) 50 mg tablet 2018-09 00:00: 00 Yes [id number] 50mg Take 1 tablet by mouth every 8 (eight) hours as needed for Pain (scale 4-6). [facility] Vital Signs Vital Name Observation Time Observation Value Comments S [facility] Systolic blood pressure 2021-05-19 00:13:00 123 mm[Hg] [facility] Diastolic blood pressure 2021-05-19 00:13:00 76 mm[Hg] [facility] Heart rate 2021-05-19 00:13:00 97 /min [facility] Body temperature 2021-05-19 00:13:00 37.39 Jimena [facility] Respiratory rate 2021-05-19 00:13:00 18 /min [facility] Body weight 2021-05-19 00:13:00 116.62 kg [facility] Oxygen saturation in Arterial blood by Pulse oximetry 2021-05-19 00:13:00 99 /min [facility] Procedures Procedure Date / Time Performed Performing Clinicia n Source XR WRIST 3+ VW RIGHT 2021-05-19 00:32:35 Alicia Stanford [facility] NOTICE OF PRIVACY PRACTICES 2021-05-19 00:07:09 Doctor Unassigned, Boyd [facility] CONSENT/REFUSAL FOR DIAGNOSIS AND TREATMENT 2021-05-19 00:06:33 Doctor Unassigned, Boyd [facility] Encounters Start Date/Time End Date/Time Encounter Type Admission Type Attending Clinicians Care Facility Care Department Encounter ID Source 2021-05-18 19:14:00 2021-05-18 20:18:00 Emergency Khalif Stanford [facility] [id number] [facility] 2021-05-18 19:06:00 2021-05-18 19:06:00 Emergency X [facility] ERT [id number] [facility]
--- NOTE | 2023-11-26 09:49 | RAD REPORT ---
EXAM DESCRIPTION: CT - Head Brain Wo Cont - 11/26/2023 9:35 am CLINICAL HISTORY: NUMBNESS Headache, drowsiness COMPARISON: No comparisons TECHNIQUE: All CT scans are performed using dose optimization technique as appropriate and may inclu de automated exposure control or mA/KV adjustment according to patient size. FINDINGS: No intracranial hemorrhage, hydrocephalus or extra-axial fluid collection.No areas of brai n edema or evidence of midline shift. The paranasal sinuses and mastoids are clear. The calvarium is intact. IMPRESSION: No acute intracranial abnormality.
[2023-11-26 10:06] LABS: Specific Gravity 1.025 (1.005-1.030)
[2023-11-26 10:07] LABS: Absolute Basophils 0.1 K/uL (0-0.5); Absolute Eosinophils 0.1 K/uL (0-0.5); Absolute Lymphocytes (CBC) 2.4 K/uL (0.7-4.9); Basophils % 0.7 % (0-1.3); Eosinophils % 1.8 % (0-4.4); Hemoglobin 13.6 g/dL (12.0-15.0); Lymphocytes % 31.1 % (15.3-44.8); MCV 84.9 fL (80-100); MPV 7.5 fL (7.6-11.3); Platelets 391 thou/uL (152-406); RBC Red Blood Cell Count 4.71 M/uL (3.86-4.86)
[2023-11-26 10:26] LABS: Albumin 3.7 g/dL (3.4-5.0); Albumin/Globulin Ratio 0.9 (1.1-1.8); Anion Gap 5.9 mEq/L (5.0-15.0); Bilirubin Total 0.4 mg/dL (0.2-1.0); Globulin 3.9 g/dL (2.3-3.5); Potassium 3.9 mEq/L (3.5-5.1); Protein, Total 7.6 g/dL (6.4-8.2)
--- NOTE | 2023-11-26 10:36 | EDPHYS ---
Physician Documentation [facility] Name: Althea Harmon Age: 28 yrs Sex: Female : 1995 Arrival Date: 11/26/2023 Time: 09:09 Bed 17 Private MD: ED Physician Jim Aguilar HPI: 11/25 09:26 This 28 yrs old Female presents to ER via Ambulatory with complaints of ec2 Numbness Of Arm. 09:26 Patient arrives today for evaluation of left arm numbness. Patient reports pain that is ec2 radiating from the neck into the left arm as well as numbness associated with it. Patient reports that she had a fall about a month ago that may have exacerbated the symptoms. Patient reports some nonspecific headaches as well. Patient denies any neck pathology, no previous C-spine issues, no medical problems, no daily medications.. Historical: - Allergies: 09:23 No Known Allergies; aa5 - PMHx: 09:23 Anxiety; Depression; aa5 - PSHx: 09:23 None; aa5 - Immunization history:: Adult Immunizations unknown. - Social history:: Smoking status: Patient denies any tobacco usage or history of. ROS: 09:26 Constitutional: as per hpi ec2 Exam: 09:26 Constitutional: GEN: NAD Head: atraumatic Eyes: EOMI Ears: External ears are ec2 normal. CV: regular rate LUNGS: no respiratory distress ABD: non-distended SKIN: no evidence of rashes MSK: no evidence of trauma, no C/T/L-spine TTP NEURO: moves all extremities equally, cranial nerves II through XII intact, strength intact upper extremities, sensation intact throughout Vital Signs: 09:12 BP 133 / 76; Pulse 80; Resp 19; Pulse Ox 100% ; db 09:22 BP 133 / 76; Pulse 72; Resp 18 S; Temp 97.8(TE); Pulse Ox 100% on R/A; aa5 10:00 BP 105 / 65; Pulse 71; Resp 18; Pulse Ox 100% on R/A; db MDM: 09:25 Patient medically screened. ec2 09:26 Data reviewed: vital signs. ED course: Patient arrives today for left arm numbness. ec2 Examination remarkable for well-appearing nontoxic individual is otherwise in no acute distress with an intact neurologic examination. Will obtain lab work, CT scan of the head. Currently evaluating for intracranial mass, electrolyte disturbances, . Ultimately suspect cervical radiculopathy given the patient descriptor of pain and numbness radiating from the neck into the arm. Doubt stroke, currently will defer any advanced arterial imaging or MRI.. 09:52 ED course: CT scan of the head shows no acute intracranial process.. ec2 10:35 ED course: CBC reassuring, metabolic profile with appropriate electrolytes, urine ec2 negative. On reassessment patient is well-appearing in no acute distress. I suspect cervical radiculopathy causing the patient's symptoms, doubt ischemic stroke given patient descriptors. Will discharge home. Return precautions given for . 11/25 09:25 Order name: CBC with Diff; Complete Time: 10:35 ec2 11/25 09:25 Order name: CMP; Complete Time: 10:35 ec2 11/25 09:25 Order name: Test, Urine; Complete Time: 10:35 ec2 11/25 09:25 Order name: CT Head Brain wo Cont; Complete Time: 09:52 ec2 Administered Medications: No medications were administered Disposition Summary: 11/26/23 10:35 Discharge Ordered Notes: Location: Home ec2 Problem: new ec2 Symptoms: are unchanged ec2 Condition: Stable ec2 Diagnosis - Radiculopathy, cervical region ec2 Followup: ec2 - With: Private Physician - When: - Reason: Re-evaluation by your physician Discharge Instructions: - Discharge Summary Sheet ec2 - Cervical Radiculopathy ec2 Forms: - Work release form db - Medication Reconciliation Form ec2 - Thank You Letter ec2 - Antibiotic Education ec2 - Prescription Opioid Use ec2 - Patient Portal Instructions ec2 - Leadership Thank You Letter ec2 Prescriptions: - gabapentin 300 mg Oral capsule - take 1 capsule ORAL route 3 times per day; 60 capsule; Refills: 0, Product ec2 Selection Permitted Signatures: Dispatcher [employer] Chantelle Cruz RN RN aa5 Inge Brand RN RN db Jim Aguilar MD MD ec2 Corrections: (The following items were deleted from the chart) 09:44 09:44 Patient medically screened. ec2 ec2
--- NOTE | 2023-11-26 10:36 | ER ---
Nurse's Notes [facility] Name: Althea Harmon Age: 28 yrs Sex: Female : 1995 Arrival Date: 11/26/2023 Time: 09:09 Bed 17 Private MD: Diagnosis: Radiculopathy, cervical region Presentation: 11/25 09:22 Chief complaint: Patient states: numbness to left arm since Sunday on and off, aa5 radiating down from left shoulder. 09:22 Coronavirus screen: At this time, the client does not indicate any symptoms associated aa5 with coronavirus-19. Ebola Screen: Patient denies travel to an Ebola-affected area in the 21 days before illness onset. Initial Sepsis Screen: Does the patient meet any 2 criteria? No. Patient's initial sepsis screen is negative. Does the patient have a suspected source of infection? No. Patient's initial sepsis screen is negative. Risk Assessment: Do you want to hurt yourself or someone else? Patient reports no desire to harm self or others. Onset of symptoms was November 2023. 09:22 Method Of Arrival: Ambulatory aa5 09:22 Acuity: ZENON 4 aa5 Historical: - Allergies: 09:23 No Known Allergies; aa5 - PMHx: 09:23 Anxiety; Depression; aa5 - PSHx: 09:23 None; aa5 - Immunization history:: Adult Immunizations unknown. - Social history:: Smoking status: Patient denies any tobacco usage or history of. Screenin:07 [facility] ED Fall Risk Assessment (Adult) History of falling in the last 3 months, db including since admission No falls in past 3 months (0 pts) Confusion or Disorientation No (0 pts) Intoxicated or Sedated No (0 pts) Impaired Gait No (0 pts) Mobility Assist Device Used No (0 pt) Altered Elimination No (0 pt) Score/Fall Risk Level 0 - 2 = Low Risk Oriented to surroundings, Maintained a safe environment. Abuse screen: Denies threats or abuse. Denies injuries from another. Nutritional screening: No deficits noted. Tuberculosis screening: No symptoms or risk factors identified. Assessment: 09:45 Reassessment: Patient appears in no apparent distress at this time. Patient and/or db family updated on plan of care and expected duration. Pain level reassessed. Patient is alert, oriented x 3, equal unlabored respirations, skin warm/dry/pink. LEFT ARM TINGLING AND PAIN. 09:45 Reassessment: PT RETURNED TO ROOM FROM RESTROOM. db 10:00 Pain: Complains of pain in left arm. db 11:00 Reassessment: Patient appears in no apparent distress at this time. Patient and/or db family updated on plan of care and expected duration. Pain level reassessed. Patient is alert, oriented x 3, equal unlabored respirations, skin warm/dry/pink. General: Appears in no apparent distress. comfortable, Behavior is calm, cooperative. Neuro: Level of Consciousness is awake, alert, obeys commands, Oriented to person, place, time, situation. Respiratory: Airway is patent Respiratory effort is even, unlabored, Respiratory pattern is regular, symmetrical. Vital Signs: 09:12 BP 133 / 76; Pulse 80; Resp 19; Pulse Ox 100% ; db 09:22 BP 133 / 76; Pulse 72; Resp 18 S; Temp 97.8(TE); Pulse Ox 100% on R/A; aa5 10:00 BP 105 / 65; Pulse 71; Resp 18; Pulse Ox 100% on R/A; db ED Course: 09:11 Patient arrived in ED. ec2 09:11 Jim Aguilar MD is Attending Physician. ec2 09:22 Arm band placed on Patient placed in an exam room, on a stretcher. aa5 09:24 Triage completed. aa5 09:36 CT Head Brain wo Cont In Process Unspecified. EDMS 09:45 Inge Brand RN is Primary Nurse. db 09:52 Inserted saline lock: 22 gauge in right antecubital area, using aseptic technique. db Blood collected. 10:01 Patient has correct armband on for positive identification. Bed in low position. Call db light in reach. Side rails up X 1. Pulse ox on. NIBP on. Warm blanket given. 11:07 Provided Education on: DISCHARGE. db 11:07 No provider procedures requiring assistance completed. IV discontinued, intact, db bleeding controlled, No redness/swelling at site. Administered Medications: No medications were administered Medication: 11:07 VIS not applicable for this client. db Outcome: 10:35 Discharge ordered by . ec2 11:07 Discharged to home ambulatory, with family, db 11:07 Condition: stable 11:07 Discharge instructions given to patient, Instructed on discharge instructions, follow up and referral plans. Prescriptions given X 1, : Patient left the ED. db Signatures: Dispatcher [employer] Chantelle Cruz RN RN aa5 Inge Brand RN RN db Jim Aguilar MD MD ec2
[2023-11-26 11:33] VITALS: BP 105/65; TEMP 97.8; O2SAT 100
== END ==
LOC: ER 09:09
DX: M54.12 Radiculopathy, cervical region (principal)
CPT/HCPCS: 36415; 70450; 80053; 81025; 85025; 99284

== ENCOUNTER 2024-08-10 12:45 | Emergency (ER) | payer SELFPAY ==
--- OUTSIDE RECORDS SUMMARY | 2024-08-10 12:48 | XMS REPORT | Continuity of Care Document ---
Author Name Unknown Address [address] [facility] [place] [place] [address] [facility] thconnect Address [address] [facility] [place] [place] [address] Care Team Providers Care Safety Belt Installer Name Role Phone Alejandro York [facility] Care Physician Khalif Giron Attending Clinician [phone] Problems Condition Name Condition Details Condition Category Status Onset Date Resolution Date Last Treatment Date Treating Clinician Comments Source No known active problems No known active problems Disease [facility] Allergies, Adverse Reactions, Alerts Allergy Name Allergy Type Status Severity Reaction(s) Onset Date Inactive Date Treating Clinician Comments Source NO KNOWN ALLERGIE S Drug Class Active [facility] Social History Social Habit Start Date Stop Date Quantity Comments Source Exposure to SARS-CoV-2 (event) Not sure [facility] Sex Assigned At 1995 00:00:00 1995 00:00:00 [facility] Smoking Status Start Date Stop Date Source Unknown if ever smoked [facility] Medications Ordered Medication Name Filled Medication Name Start Date Stop Date Current Medication? Ordering Clinician Indication Dosage Frequency Signature (SIG) Comments Components Source Bromfed DM 2 mg-30 mg-10 mg/5 mL oral syrup -08 00:00: 00 Yes 20mg/5 mL Alejandro Arceo sertraline 50 mg tablet 2019-09- 00:00: 00 Yes 1mg Alejandro Arceo sertraline 25 mg tablet 2019-09 00:00: 00 Yes 1mg Alejandro Arceo buspirone 10 mg tablet 2019-09 00:00: 00 Yes 1mg Alejandro Arceo sertraline 25 mg tablet 06-12 00:00: 00 Yes 1mg Alejandro Arceo hydroxyzine HCl 25 mg tablet 06-12 00:00: 00 Yes 12mg Alejandro Arceo cyclobenzap rine 5 mg tablet 2018-09 00:00: 00 Yes [id number] 5mg Take 1 tablet by mouth 3 (three) times daily. [facility] traMADol (ULTRAM) 50 mg tablet 2018-09 00:00: 00 Yes [id number] 50mg Take 1 tablet by mouth every 8 (eight) hours as needed for Pain (scale 4-6). [facility] prednisone 20 mg tablet 2018-09 00:00: 00 Yes 2mg Alejandro Arceo citalopram 10 mg tablet 2018-09 00:00: 00 Yes 1mg Alejandro Arceo naproxen 500 mg tablet 2018-09 00:00: 00 Yes 1mg Alejandro Arceo tramadol 50 mg tablet 2018-09 00:00: 00 Yes 1mg Alejandro Arceo hydroxyzine HCl 25 mg tablet 2018-09 00:00: 00 Yes 1mg Alejandro Arceo hydroxyzine HCl 25 mg tablet 2018-09 00:00: 00 Yes 12mg Alejandro Arceo Vital Signs Vital Name Observation Time Observation Value Comments S ource Systolic blood pressure 2021-05-19 00:13:00 123 mm[Hg] [facility] Diastolic blood pressure 2021-05-19 00:13:00 76 mm[Hg] [facility] Heart rate 2021-05-19 00:13:00 97 /min [facility] Body temperature 2021-05-19 00:13:00 37.39 Jimena [facility] Respiratory rate 2021-05-19 00:13:00 18 /min [facility] Body weight 2021-05-19 00:13:00 116.62 kg [facility] Oxygen saturation in Arterial blood by Pulse oximetry 2021-05-19 00:13:00 99 /min [facility] BP Systolic 2024-04-24 10:04:00 114 mm[Hg] Step hen F Adis BP Diastolic 2024-04-24 10:04:00 61 mm[Hg] [place] phen [facility] Weight Measured 2024-04-24 10:04:00 225.20 pounds Alejandro F Adis Height Measured 2024-04-24 10:04:00 63.00 inches Alejandro F Adis Body Temperature 2024-04-24 10:04:00 98.00 degrees Alejandro F Adis Heart Rate 2024-04-24 10:04:00 66.00 /min Nadya en F Adis Respiratory Rate 2024-04-24 10:04:00 16.00 /min Alejandro F Adis Respiratory Rate 2024-04-14 17:07:00 18.00 /min Alejandro F Adis BP Systolic 2024-04-14 17:07:00 102 mm[Hg] Step hen F Adis BP Diastolic 2024-04-14 17:07:00 71 mm[Hg] [place] phen F Adis Weight Measured 2024-04-14 17:07:00 225.40 pounds Alejandro F Adis Height Measured 2024-04-14 17:07:00 63.00 inches Alejandro F Adis Body Temperature 2024-04-14 17:07:00 97.70 degrees Alejandro F Adis Heart Rate 2024-04-14 17:07:00 96.00 /min Nadya en F Adis BP Systolic 2020-07-21 14:35:00 117 mm[Hg] Step hen F Adis BP Diastolic 2020-07-21 14:35:00 77 mm[Hg] [place] phen F Adis Weight Measured 2020-07-21 14:35:00 249.80 pounds Alejandro F Adis Height Measured 2020-07-21 14:35:00 63.00 inches Alejandro F Adis Body Temperature 2020-07-21 14:35:00 99.50 degrees Alejandro F Adis Heart Rate 2020-07-21 14:35:00 95.00 /min Nadya en F Adis Respiratory Rate 2020-07-21 14:35:00 21.00 /min Alejandro F Adis Respiratory Rate 2019-07-11 14:23:00 Alejandro F Adis BP Systolic 2019-07-11 14:23:00 114 mm[Hg] Step hen F Adis BP Diastolic 2019-07-11 14:23:00 71 mm[Hg] [place] phen F Adis Weight Measured 2019-07-11 14:23:00 237.00 pounds Alejandro Arceo Height Measured 2019-07-11 14:23:00 63.00 inches Alejandro Arceo Body Temperature 2019-07-11 14:23:00 98.60 degrees Alejandro Arceo Heart Rate 2019-07-11 14:23:00 102.00 /min Step hen F Adis BP Systolic 2018-12-30 08:57:00 117 mm[Hg] Step hen F Adis BP Diastolic 2018-12-30 08:57:00 80 mm[Hg] [place] phen F Adis Weight Measured 2018-12-30 08:57:00 230.00 pounds Alejandro Arceo Height Measured 2018-12-30 08:57:00 62.99 inches Alejandro Arceo Body Temperature 2018-12-30 08:57:00 98.00 degrees Alejandro Arceo Heart Rate 2018-12-30 08:57:00 78.00 /min Nadya en F Adis Respiratory Rate 2018-12-30 08:57:00 16.00 /min Alejandro Arceo Procedures Procedure Date / Time Performed Performing Clinicia n Source XR WRIST 3+ VW RIGHT 2021-05-19 00:32:35 Alicia Stanford [facility] NOTICE OF PRIVACY PRACTICES 2021-05-19 00:07:09 Doctor Unassigned, [place] [facility] CONSENT/REFUSAL FOR DIAGNOSIS AND TREATMENT 2021-05-19 00:06:33 Doctor Unassigned, [place] [facility] Encounters Start Date/Time End Date/Time Encounter Type Admission Type Attending Clinicians Care Facility Care Department Encounter ID Source 2024-06-24 08:09:59 2024-06-24 08:09:59 Outpatient [facility] [id number] Alejandro Arceo 2024-06-03 09:25:06 2024-06-03 09:25:06 Outpatient [facility] [id number] Alejandro Arceo 2024-04-24 09:53:13 2024-04-24 09:53:13 Outpatient [facility] [id number] Alejandro Arceo 2024-04-24 00:00:00 2024-04-24 00:00:[address] [facility] [id number] Alejandro Arceo 2024-04-14 16:56:23 2024-04-14 16:56:[address] [facility] [id number] Alejandro Arceo 2024-04-14 00:00:00 2024-04-14 00:00:[address] [facility] [id number] Alejandro Arceo 2024-04-09 10:29:11 2024-04-09 10:29:11 Outpatient [facility] [id number] Alejandro Arceo 2021-05-18 19:14:00 2021-05-18 20:18:00 Emergency Khalif Stanford [facility] [id number] [facility] 2021-05-18 19:06:00 2021-05-18 19:06:00 Emergency X [facility] ERT [id number] [facility] Results Test Description Test Time Test Comments Results Result Co mments Source HEMOGLOBIN [id number] 04:00:29* Test Item Value Reference Range Interpretation Comme nts HEMOGLOBIN A1c (test code = 81806) 5.5 % 4.2-5.6 UNLESS OTHERWISE INDICATED, ALL TESTING PERFORMED AT [facility] [address] [place] [address] VALIDATION INTERN: JERSEY CORADO M.D. CLIA NUMBER [id number] [facility] [place]. [id number] CBC W/AUTO DIFF WITH [id number] 03:26:44* Test Item Value Reference Range Interpretation Comme nts WBC (test code = 1001) 7.5 K/UL 3.5-11.0 RBC (test code = 1002) 4.80 M/UL 3.80-5.40 HEMOGLOBIN (test code = 1003) 13.7 G/DL 11.5-15.5 HEMATOCRIT (test code = 1004) 40.7 % 34.0-45.0 MCV (test code = 1005) 84.8 fL 80.0-99.0 MCH (test code = 1006) 28.5 PG 25.0-33.0 MCHC (test code = 1007) 33.7 G/DL 31.0-36.0 RDW (test code = 1038) 12.4 % 11.5-15.0 NEUTROPHILS (test code = 1008) 50.8 % LYMPHOCYTES (test code = 1010) 37.3 % MONOCYTES (test code = 1011) 6.2 % EOSINOPHILS (test code = 1012) 4.6 % BASOPHILS (test code = 1013) 0.7 % IMMATURE GRANULOCYTES (test code = 1036) 0.4 % NUCLEATED RBCS (test code = 1065) 0.0 /100 WBC'S See_Comment [Automated sarvaMAILa ge] The system which generated this result transmitted reference range: 0.0. The reference range was not used to interpret this result as normal/abnormal. PLATELET COUNT (test code = 1015) 389 K/UL 130-400 ABSOLUTE NEUTROPHILS (test code = 1066) 3.82 K/UL 1.50-7.50 ABSOLUTE LYMPHOCYTES (test code = 1067) 2.81 K/UL 1.00-4.00 ABSOLUTE MONOCYTES (test code = 1068) 0.47 K/UL 0.20-1.00 ABSOLUTE EOSINOPHILS (test code = 1040) 0.35 K/UL 0.00-0.50 ABSOLUTE BASOPHILS (test code = 1069) 0.05 K/UL 0.00-0.20 ABS IMMATURE GRANULOCYTES (test code = 1020) 0.03 K/UL 0.00-0.10 ABS NUCLEATED RBCS (test code = 37324) 0.00 K/UL 0.00-0.11 LIPID [id number] 00:00:00* Test Item Value Reference Range Interpretation Comme nts CHOLESTEROL (test code = 2210) 132 MG/DL TRIGLYCERIDES (test code = 2232) 65 MG/DL HDL CHOLESTEROL (test code = 2220) 40 MG/DL CALC LDL CHOL (test code = 2237) 78 MG/DL RISK RATIO LDL/HDL (test cod e = 2238) 1.95 RATIO Alejandro ArceoCBC W/AUTO [id number] 00:00:00* Test Item Value Reference Range Interpretation Comme nts WBC (test code = 1001) 7.5 K/UL RBC (test code = 1002) 4.80 M/UL HEMOGLOBIN (test code = 1003) 13.7 G/DL HEMATOCRIT (test code = 1004) 40.7 % MCV (test code = 1005) 84.8 fL MCH (test code = 1006) 28.5 PG MCHC (test code = 1007) 33.7 G/DL RDW (test code = 1038) 12.4 % NEUTROPHILS (test code = 1008) 50.8 % LYMPHOCYTES (test code = 1010) 37.3 % MONOCYTES (test code = 1011) 6.2 % EOSINOPHILS (test code = 1012) 4.6 % BASOPHILS (test code = 1013) 0.7 % IMMATURE GRANULOCYTES (test code = 1036) 0.4 % NUCLEATED RBCS (test code = 1065) 0.0 /100WBC'S PLATELET COUNT (test code = 1015) 389 K/UL ABSOLUTE NEUTROPHILS (test c ode = 1066) 3.82 K/UL ABSOLUTE LYMPHOCYTES (test c ode = 1067) 2.81 K/UL ABSOLUTE MONOCYTES (test cod e = 1068) 0.47 K/UL ABSOLUTE EOSINOPHILS (test c ode = 1040) 0.35 K/UL ABSOLUTE BASOPHILS (test cod e = 1069) 0.05 K/UL ABS IMMATURE GRANULOCYTES (t est code = 1020) 0.03 K/UL ABS NUCLEATED RBCS (test cod e = 77579) 0.00 K/UL Alejandro York AustinHEMOGLOBIN [id number] 00:00:00* Test Item Value Reference Range Interpretation Comme nts HEMOGLOBIN A1c (test code = 64650) 5.5 % Alejandro York AustinCOMPREHENSIVE METABOLIC [id number] 00:00:00* Test Item Value Reference Range Interpretation Comme nts GLUCOSE (test code = 2217) 112 MG/DL BUN (test code = 2208) 9 MG/DL CREATININE (test code = 2214) 0.51 MG/DL eGFR AMER. (test cod e = 04464) 158 ML/MIN/1.73 eGFR NON- AMER. (test code = 57573) 136 ML/MIN/1.73 CALC BUN/CREAT (test code = 2235) 18 RATIO SODIUM (test code = 2231) 141 MEQ/L POTASSIUM (test code = 2228) 4.3 MEQ/L CHLORIDE (test code = 2215) 102 MEQ/L CARBON DIOXIDE (test code = 2206) 28 MEQ/L CALCIUM (test code = 2209) 10.4 MG/DL PROTEIN, TOTAL (test code = 2229) 7.5 G/DL ALBUMIN (test code = 2201) 4.9 G/DL CALC GLOBULIN (test code = 2240) 2.6 G/DL CALC A/G RATIO (test code = 2234) 1.9 RATIO BILIRUBIN, TOTAL (test code = 2207) <0.2 MG/DL ALKALINE PHOSPHATASE (test code = 2204) 88 U/L AST (test code = 2218) 20 U/L ALT (test code = 2219) 20 U/L Alejandro York [id number] 00:00:00* Test Item Value Reference Range Interpretation Comme nts TSH, THIRD GENERATION (test code = 2821) 1.990 UIU/ML Alejandro ArceoCOMPREHENSIVE METABOLIC [id number] 00:00:00* Test Item Value Reference Range Interpretation Comme nts GLUCOSE (test code = 2217) 112 MG/DL BUN (test code = 2208) 9 MG/DL CREATININE (test code = 2214) 0.51 MG/DL eGFR AMER. (test cod e = 40102) 158 ML/MIN/1.73 eGFR NON- AMER. (test code = 21886) 136 ML/MIN/1.73 CALC BUN/CREAT (test code = 2235) 18 RATIO SODIUM (test code = 2231) 141 MEQ/L POTASSIUM (test code = 2228) 4.3 MEQ/L CHLORIDE (test code = 2215) 102 MEQ/L CARBON DIOXIDE (test code = 2206) 28 MEQ/L CALCIUM (test code = 2209) 10.4 MG/DL PROTEIN, TOTAL (test code = 2229) 7.5 G/DL ALBUMIN (test code = 2201) 4.9 G/DL CALC GLOBULIN (test code = 2240) 2.6 G/DL CALC A/G RATIO (test code = 2234) 1.9 RATIO BILIRUBIN, TOTAL (test code = 2207) <0.2 MG/DL ALKALINE PHOSPHATASE (test code = 2204) 88 U/L AST (test code = 2218) 20 U/L ALT (test code = 2219) 20 U/L Alejandro [id number] 00:00:00* Test Item Value Reference Range Interpretation Comme nts TSH, THIRD GENERATION (test code = 2821) 1.990 UIU/ML Alejandro Arceo Notes Date/Time Note Provider Source Alejandro Mixon [facility]2024-07-29 00:00:00 Alejandro Mixon [facility]
[2024-08-10 14:14] LABS: SARS-CoV-2 Antigen CONTROL BLUE LINE VIS/BG OK; SARS-CoV-2 Antigen Rapid Res Negative (Negative)
--- NOTE | 2024-08-10 14:18 | ER ---
Nurse's Notes [facility] Name: Althea Harmon Age: 29 yrs Sex: Female : 1995 Arrival Date: 08/10/2024 Time: 12:45 Bed IW1 Private MD: Diagnosis: Influenza due to identified novel influenza A virus Presentation: 08/10 12:57 Chief complaint: Patient states: Cough, body aches, and subjective fever onset Sunday. 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 Coronavirus screen: Client denies travel out of the [place] in the last 14 days. Ebola Screen: Patient denies travel to an Ebola-affected area in the 21 days before illness onset. No symptoms or risks identified at this time. Initial Sepsis Screen: Does the patient meet any 2 criteria? HR > 90 bpm. Does the patient have a suspected source of infection? No. Patient's initial sepsis screen is negative. Risk Assessment: Do you want to hurt yourself or someone else? Patient reports no desire to harm self or others. Onset of symptoms was August 08, 2024. 12:57 Method Of Arrival: Ambulatory cm10 12:57 Acuity: ZENON 4 cm10 Triage Assessment: 12:58 General: Appears in no apparent distress. uncomfortable, Behavior is calm, cooperative. cm10 Neuro: No deficits noted. Level of Consciousness is awake, alert, obeys commands, Oriented to person, place, time, situation, Appropriate for age. Respiratory: No deficits noted. Reports cough that is non-productive, dry, Airway is patent Respiratory effort is even, unlabored, Respiratory pattern is regular, symmetrical. Musculoskeletal: No deficits noted. Range of motion: intact in all extremities. 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 - Infectious Disease History:: Denies. - Social history:: Smoking status: Patient reports the use of cigarette tobacco products, denies chronic smoking, but will smoke occasionally. Screenin:01 [facility] ED Fall Risk Assessment (Adult) History of falling in the last 3 months, cm10 including since admission No falls in past 3 months (0 pts) Confusion or Disorientation No (0 pts) Intoxicated or Sedated No (0 pts) Impaired Gait No (0 pts) Mobility Assist Device Used No (0 pt) Altered Elimination No (0 pt) Score/Fall Risk Level 0 - 2 = Low Risk Oriented to surroundings, Maintained a safe environment, Hourly rounding (assess needs \T\ fall precautionary measures) done. Abuse screen: Denies threats or abuse. Denies injuries from another. Nutritional screening: No deficits noted. Tuberculosis screening: No symptoms or risk factors identified. Vital Signs: 12:57 BP 119 / 80; Pulse 114; Resp 18; Temp 98.7(O); Pulse Ox 96% on R/A; Weight 106.59 kg; cm10 Height 5 ft. 2 in. ; Pain 0/10; 12:57 Body Mass Index 42.98 (106.59 kg, 157.48 cm) cm10 12:57 Pain Scale: Adult cm10 ED Course: 12:55 Patient arrived in ED. [facility] 12:56 [facility] 12:56 Jim Aguilar MD is Attending Physician. [facility] 12:58 Triage completed. cm10 12:59 Arm band placed on left wrist. Patient placed in waiting room. cm10 13:03 SARS RAPID Sent. cm10 13:03 Strep Sent. cm10 13:03 Flu Sent. cm10 13:03 COVID swab sent to lab. Flu and/or RSV swab sent to lab. Strep swab sent to lab. cm10 14:01 Patient has correct armband on for positive identification. Provided Education on: ER cm10 process and procedures.. 14:01 No provider procedures requiring assistance completed. Patient did not have IV access cm10 during this emergency room visit. Administered Medications: No medications were administered Medication: 14:01 VIS not applicable for this client. cm10 Outcome: 14:17 Discharge ordered by . [facility] 14:26 Discharged to home ambulatory, with family, 10 14:26 Condition: good 14:26 Discharge instructions given to patient, Instructed on discharge instructions, follow up and referral plans. medication usage, Demonstrated understanding of instructions, follow-up care, medications, Prescriptions given X 2, 14:27 Patient left the ED. cm10 Signatures: Brigitte Conroy FNP MARGARINE CHURN OPERATOR [facility] Jie Blood RN RN 10 Wan, Nikki ra3 Corrections: (The following items were deleted from the chart) 12:58 12:58 Allergies: Aspirin; cm10 cm10
--- NOTE | 2024-08-10 14:18 | EDPHYS ---
Physician Documentation [facility] Name: Althea Harmon Age: 29 yrs Sex: Female : 1995 Arrival Date: 08/10/2024 Time: 12:45 Bed IW1 Private MD: ED Physician Jim Aguilar HPI: 08/10 12:58 This 29 yrs old Female presents to ER via Ambulatory with complaints of Flu [facility] Symptoms. 12:58 29-year-old female with no significant past medical history presents to the ER [facility] complaining of cough, congestion, body aches, and fever for the past 2 days. 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 No other symptoms/complaints.. 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 - Infectious Disease History:: Denies. - Social history:: Smoking status: Patient reports the use of cigarette tobacco products, denies chronic smoking, but will smoke occasionally. ROS: 12:58 Constitutional: Per HPI 7 Exam: 12:58 Constitutional: This is a well developed, well nourished patient who is awake, alert, jh7 and in no acute distress. Head/Face: Normocephalic, atraumatic. Neck: Trachea midline, no thyromegaly or masses palpated, and no cervical lymphadenopathy. Supple, full range of motion without nuchal rigidity, or vertebral point tenderness. No Meningismus. Cardiovascular: Regular rate and rhythm with a normal S1 and S2. No gallops, murmurs, or rubs. Normal PMI, no JVD. No pulse deficits. Respiratory: Lungs have equal breath sounds bilaterally, clear to auscultation and percussion. No rales, rhonchi or wheezes noted. No increased work of breathing, no retractions or nasal flaring. Abdomen/GI: Soft, non-tender, with normal bowel sounds. No distension or tympany. No guarding or rebound. No evidence of tenderness throughout. Skin: Warm, dry with normal turgor. Normal color with no rashes, no lesions, and no evidence of cellulitis. MS/ Extremity: Pulses equal, no cyanosis. Neurovascular intact. Full, normal range of motion. Neuro: Awake and alert, GCS 15, oriented to person, place, time, and situation. Motor strength 5/5 in all extremities. Sensory grossly intact. Normal gait. 12:58 ENT: TM's: are normal, Nose: nasal drainage, and is seen coming from both nares, that is clear, Posterior pharynx: pooling of secretions, that are mild, Vital Signs: 12:57 BP 119 / 80; Pulse 114; Resp 18; Temp 98.7(O); Pulse Ox 96% on R/A; Weight 106.59 kg; cm10 Height 5 ft. 2 in. ; Pain 0/10; 12:57 Body Mass Index 42.98 (106.59 kg, 157.48 cm) cm10 12:57 Pain Scale: Adult cm10 MDM: 12:56 Medical Screening Exam initiated [facility] 14:18 Differential diagnosis: viral Infection, bacterial infection, URI. Data reviewed: vital [facility] signs, nurses notes, lab test result(s). Counseling: I had a detailed discussion with the patient and/or guardian regarding the historical points, exam findings, and any diagnostic results supporting the discharge/admit diagnosis, to return to the emergency department if symptoms worsen or persist or if there are any questions or concerns that arise at home. 08/10 12:59 Order name: Flu; Complete Time: 14:16 cm10 08/10 12:59 Order name: Strep cm10 08/10 12:59 Order name: SARS RAPID; Complete Time: 14:16 cm10 08/10 14:17 Order name: Throat Culture EDMS Administered Medications: No medications were administered Disposition Summary: 08/10/24 14:17 Discharge Ordered Notes: Location: Home [facility] Problem: new [facility] Symptoms: are unchanged [facility] Condition: Stable [facility] Diagnosis - Influenza due to identified novel influenza A virus [facility] Followup: [facility] - With: Private Physician - When: 2 - 3 days - Reason: Recheck today's complaints Discharge Instructions: - Discharge Summary Sheet [facility] - Influenza, Adult [facility] Forms: - Medication Reconciliation Form [facility] - Antibiotic Education [facility] - Patient Portal Instructions [facility] - Leadership Thank You Letter [facility] - Work release form 10 Prescriptions: - Tessalon Perles 100 mg Oral Capsule - take 1 capsule ORAL route every 8 hours As needed; 15 capsule; Refills: 0, jh7 Product Selection Permitted - Tamiflu 75 mg Oral capsule - take 1 tablet ORAL route every 12 hours for 5 days; 10 tablet; Refills: 0, jh7 Product Selection Permitted Signatures: Dispatcher [employer] Brigitte Abraham, TELESALES TEAM LEADER TELESALES TEAM LEADER 7 Jie Blood RN RN cm10 Corrections: (The following items were deleted from the chart) 12:58 12:58 Allergies: Aspirin; cm10 cm10
[2024-08-10 17:08] VITALS: BP 119/80; TEMP 98.7; O2SAT 96
== END 2024-08-10 14:27 | disposition home or self-care (01) ==
LOC: ER 12:45
DX: J10.1 Influenza due to other identified influenza virus with other respiratory manifestations (principal); Z72.0 Tobacco use; Z11.52 Encounter for screening for COVID-19
CPT/HCPCS: 36415; 87070; 87081; 87804; 87811; 99283

== ENCOUNTER 2025-01-11 23:59 | Emergency (ER) | payer SELFPAY ==
--- OUTSIDE RECORDS SUMMARY | 2025-01-12 00:04 | XMS REPORT | Continuity of Care Document ---
Author Name Unknown Address [address] [facility] [place]. [address] [place] [address] Organization [facility] [place] Address [address] [facility] [place]. [address] [place] [address] Care Team Providers Care Hotel Associate Name Role Phone Alejandro York [facility], [facility] Care Physician Khalif Giron Attending Clinician Problems Condition Name Condition Details Condition Category Status Onset Date Resolution Date Last Treatment Date Treating Clinician Comments Source No known active problems No known active problems Disease [facility] Allergies, Adverse Reactions, Alerts Allergy Name Allergy Type Status Severity Reaction(s) Onset Date Inactive Date Treating Clinician Comments Source NO KNOWN ALLERGIE S Drug Class Active [facility] Social History Social Habit Start Date Stop Date Quantity Comments Source Exposure to SARS-CoV-2 (event) Not sure [facility] Sex Assigned At 1995 00:00:00 1995 00:00:00 [facility] Smoking Status Start Date Stop Date Source Unknown if ever smoked [facility] Medications Ordered Medication Name Filled Medication Name Start Date Stop Date Current Medication? Ordering Clinician Indication Dosage Frequency Signature (SIG) Comments Components Source aripiprazol e 5 mg tablet 2023-09- 00:00: 00 Yes 15mg Alejandro Arceo Lexapro 20 mg tablet 2023-09- 00:00: 00 Yes 1mg Alejandro Arceo hydroxyzine HCl 25 mg tablet 2023-09 00:00: 00 Yes 1mg Alejandro Arceo aripiprazol e 5 mg tablet 2023-09 2- 00:00: 00 Yes 15mg Alejandro Arceo Lexapro 10 mg tablet 2023-09 2- 00:00: 00 Yes 1mg Alejandro Arceo Lexapro 20 mg tablet 2023-09 2- 00:00: 00 Yes 1mg Alejandro Arceo hydroxyzine HCl 25 mg tablet 2023-09 2 00:00: 00 Yes 1mg Alejandro Arceo aripiprazol e 5 mg tablet 2023-09 00:00: 00 Yes 15mg Alejandro Arceo Lexapro 10 mg tablet 2023-09 00:00: 00 Yes 1mg Alejandro Arceo hydroxyzine HCl 25 mg tablet 2023-09 00:00: 00 Yes 1mg Alejandro Arceo aripiprazol e 5 mg tablet 2023-09 0-30 00:00: 00 Yes 1mg Alejandro Arceo Lexapro 10 mg tablet 2023-09 030 00:00: 00 Yes 1mg Alejandro Arceo hydroxyzine HCl 25 mg tablet 2023-09 030 00:00: 00 Yes 1mg Alejandro Arceo aripiprazol e 5 mg tablet 2023-09 0- 00:00: 00 Yes 1mg Alejandro Arceo trazodone 50 mg tablet 2023-09 0 00:00: 00 Yes 1mg Alejandro Arceo Bromfed DM 2 mg-30 mg-10 mg/5 mL oral syrup - 00:00: 00 Yes 20mg/5 mL Alejandro Arceo sertraline 50 mg tablet 2019-09 00:00: 00 Yes 1mg Alejandro Arceo sertraline 25 mg tablet 2019-09 00:00: 00 Yes 1mg Alejandro Arceo buspirone 10 mg tablet 2019-09 00:00: 00 Yes 1mg Alejandro Arceo sertraline 25 mg tablet 06-12 00:00: 00 Yes 1mg Alejandro Arceo hydroxyzine HCl 25 mg tablet 06-12 00:00: 00 Yes 12mg Alejandro Arceo cyclobenzap rine 5 mg tablet 2018-09 00:00: 00 Yes [id number] 5mg Take 1 tablet by mouth 3 (three) times daily. [facility] traMADol (ULTRAM) 50 mg tablet 2018-09 00:00: 00 Yes [id number] 50mg Take 1 tablet by mouth every 8 (eight) hours as needed for Pain (scale 4-6). [facility] prednisone 20 mg tablet 2018-09 00:00: [...] Systolic blood pressure 2021-05-19 00:13:00 123 mm[Hg] [facility] Diastolic blood pressure 2021-05-19 00:13:00 76 mm[Hg] [facility] Heart rate 2021-05-19 00:13:00 97 /min [facility] Body temperature 2021-05-19 00:13:00 37.39 Jimena [facility] Respiratory rate 2021-05-19 00:13:00 18 /min [facility] Body weight 2021-05-19 00:13:00 116.62 kg [facility] Oxygen saturation in Arterial blood by Pulse oximetry 2021-05-19 00:13:00 99 /min [facility] Weight Measured 2024-12-16 15:46:00 229.00 pounds Alejandro Arceo Height Measured 2024-12-16 15:46:00 63.00 inches Alejandro Arceo Body Temperature 2024-12-16 15:46:00 98.40 degrees Alejandro Arceo Heart Rate 2024-12-16 15:46:00 76.00 /min Nadya en F Adis Respiratory Rate 2024-12-16 15:46:00 18.00 /min Alejandro F Adis BP Systolic 2024-12-16 15:46:00 115 mm[Hg] Step hen F Adis BP Diastolic 2024-12-16 15:46:00 57 mm[Hg] [place] phen F Adis BP Systolic 2024-04-24 10:04:00 114 mm[Hg] Step [...] 2020-07-21 14:35:00 21.00 /min Alejandro F Adis BP Systolic 2019-07-11 14:23:00 114 mm[Hg] Step hen F Adis BP Diastolic 2019-07-11 14:23:00 71 mm[Hg] [place] phen F Adis Weight Measured 2019-07-11 14:23:00 237.00 pounds Alejandro F Aids Height Measured 2019-07-11 14:23:00 63.00 inches Alejandro F Adis Body Temperature 2019-07-11 14:23:00 98.60 degrees Alejandro F Adis Heart Rate 2019-07-11 14:23:00 102.00 /min Step hen F Adis Respiratory Rate 2019-07-11 14:23:00 Alejandro F Adis BP Systolic 2018-12-30 08:57:00 117 mm[Hg] Step hen F Adis BP Diastolic 2018-12-30 08:57:00 80 mm[Hg] [place] phen F Adis Weight Measured 2018-12-30 08:57:00 230.00 pounds Alejandro F Adis Height Measured 2018-12-30 08:57:00 62.99 inches Alejandro F Adis Body Temperature 2018-12-30 08:57:00 98.00 degrees Alejandro F Adis Heart Rate 2018-12-30 08:57:00 78.00 /min Nadya en F Adis Respiratory Rate 2018-12-30 08:57:00 16.00 /min Alejandro Arceo Procedures Procedure Date / Time Performed Performing Clinicia n Source XR WRIST 3+ VW RIGHT 2021-05-19 00:32:35 Alicia Stanford [facility] NOTICE OF PRIVACY PRACTICES 2021-05-19 00:07:09 Doctor Unassigned, [place] [facility] CONSENT/REFUSAL FOR DIAGNOSIS AND TREATMENT 2021-05-19 00:06:33 Doctor Unassigned, [place] [facility] Encounters Start Date/Time End Date/Time Encounter Type Admission Type Attending [facility] Care Facility Care Department Encounter ID Source 2024-12-17 08:42:50 2024-12-17 08:42:50 Outpatient [facility] [id number] Alejandro York Adis 2024-12-16 15:37:36 2024-12-16 15:37:36 Outpatient [facility] [id number] Alejandro Arceo 2024-12-16 00:00:00 2024-12-16 00:00:00 Outpatient Visit [facility] [id number] Alejandro Arceo 2024-06-24 08:09:59 2024-06-24 08:09:59 Outpatient [facility] [id number] Alejandro Arceo 2024-06-03 09:25:06 2024-06-03 09:25:06 Outpatient [facility] [id number] Alejandro Arceo 2024-04-24 09:53:13 2024-04-24 09:53:13 Outpatient [facility] [id number] Alejandro Arceo 2024-04-24 00:00:00 2024-04-24 00:00:00 Outpatient Visit [facility] [id number] Alejandro Arceo 2024-04-14 16:56:23 2024-04-14 16:56:23 Outpatient [facility] [id number] Alejandro Arceo 2024-04-14 00:00:00 2024-04-14 00:00:00 Outpatient Visit [facility] [id number] Alejandro Arceo 2024-04-09 10:29:11 2024-04-09 10:29:11 Outpatient [facility] [id number] Alejadnro Arceo 2021-05-18 19:14:00 2021-05-18 20:18:00 Emergency Khalif Stanford [facility] [id number] [facility] 2021-05-18 19:06:00 2021-05-18 19:06:00 Emergency X [place] ERT [id number] [facility] Results Test Description Test Time Test Comments Results Result Co mments Source HEMOGLOBIN [id number] 04:00:29* Test Item Value Reference Range Interpretation Comme nts HEMOGLOBIN A1c (test code = 08240) 5.5 % 4.2-5.6 UNLESS OTHERWISE INDICATED, ALL TESTING PERFORMED AT [facility] [address] [place] [id number] [employer] CLE[employer]ER: JERSEY CORADO M.D. CLIA NUMBER [id number] [facility] [place]. [id number] CBC W/AUTO DIFF WITH [id number] 03:26:44* Test Item Value Reference Range Interpretation [...] = 1065) 0.0 /100 WBC'S See_Comment [Automated messa ge] The system which generated this result [...] 0.00-0.10 ABS NUCLEATED RBCS (test code = 46581) 0.00 K/UL 0.00-0.11 LIPID [id number] 00:00:00* Test Item Value Reference Range Interpretation Comme nts CHOLESTEROL (test code = 2210) 132 MG/DL TRIGLYCERIDES (test code = 2232) 65 MG/DL HDL CHOLESTEROL (test code = 2220) 40 MG/DL CALC LDL CHOL (test code = 2237) 78 MG/DL RISK RATIO LDL/HDL (test cod e = 2238) 1.95 [facility]IO [facility] [id number] 00:00:00* Test Item Value Reference Range Interpretation [...] ABS NUCLEATED RBCS (test cod e = 86644) 0.00 K/UL Alejandro ArceoHEMOGLOBIN [id number] 00:00:00* Test Item Value Reference Range Interpretation Comme nts HEMOGLOBIN A1c (test code = 69507) 5.5 % Alejandro ArceoLIPID [id number] 00:00:00* Test Item Value Reference Range Interpretation Comme nts CHOLESTEROL (test code = 2210) 132 MG/DL TRIGLYCERIDES (test code = 2232) 65 MG/DL HDL CHOLESTEROL (test code = 2220) 40 MG/DL CALC LDL CHOL (test code = 2237) 78 MG/DL RISK RATIO LDL/HDL (test cod e = 2238) 1.95 RATIO Alejandro ArceoCBC W/AUTO [id number] 00:00:00* Test Item Value Reference Range Interpretation [...] ABS NUCLEATED RBCS (test cod e = 09916) 0.00 K/UL Alejandro ArceoHEMOGLOBIN [id number] 00:00:00* Test Item Value Reference Range Interpretation Comme froylan HEMOGLOBIN A1c (test code = 80488) 5.5 % Alejandro ArceoCOMPREHENSIVE METABOLIC [id number] 00:00:00* Test Item Value Reference Range Interpretation Comme nts GLUCOSE (test code = 2217) 112 MG/DL BUN (test code = 2208) 9 MG/DL CREATININE (test code = 2214) 0.51 MG/DL eGFR AMER. (test cod e = 77239) 158 ML/MIN/1.73 eGFR NON- AMER. (test code = 76945) 136 ML/MIN/1.73 CALC BUN/CREAT (test code = [...] (test code = 2219) 20 U/L Alejandro [id number] 00:00:00* Test Item Value Reference Range Interpretation Comme froylan TSH, THIRD GENERATION (test code = 2821) 1.990 UIU/ML Alejandro ArceoCOMPREHENSIVE METABOLIC [id number] 00:00:00* Test Item Value Reference Range Interpretation Comme nts GLUCOSE (test code = 2217) 112 MG/DL BUN (test code = 2208) 9 MG/DL CREATININE (test code = 2214) 0.51 MG/DL eGFR AMER. (test cod e = 21755) 158 ML/MIN/1.73 eGFR NON- AMER. (test code = 66452) 136 ML/MIN/1.73 CALC BUN/CREAT (test code = [...] code = 2219) 20 U/L Alejandro York [id number] 00:00:00* Test Item Value Reference Range Interpretation Comme nts TSH, THIRD GENERATION (test code = 2821) 1.990 UIU/ML Alejandro York [place]PREHENSIVE MET[place]OL[place] [id number] 00:00:00* Test Item Value Reference Range Interpretation Comme nts GLUCOSE (test code = 2217) 112 MG/DL BUN (test code = 2208) 9 MG/DL CREATININE (test code = 2214) 0.51 MG/DL eGFR AMER. (test cod e = 92277) 158 ML/MIN/1.73 eGFR NON- AMER. (test code = 36547) 136 ML/MIN/1.73 CALC BUN/CREAT (test code = [...] (test code = 2219) 20 U/L Alejandro Jaylen [id number] 00:00:00* Test Item Value Reference Range Interpretation Comme nts TSH, THIRD GENERATION (test code = 2821) 1.990 UIU/ML Alejandro Arceo Notes Date/Time Note Provider Source Alejandro Mixon [facility]2024-08-08 00:00:00 Alejandro Mixon [facility]2024-07-29 00:00:00 Alejandro Tosin [facility]
[2025-01-12] MEDS ORDERED: KETOROLAC 30 MG/ML INJ ONE (00:36)
[2025-01-12] MEDS ORDERED: NA CHLORIDE 0.9% 1,000 ML ONE (00:36)
[2025-01-12 00:56] LABS: Absolute Basophils 0.1 K/uL (0-0.5); Absolute Eosinophils 0.1 K/uL (0-0.5); Absolute Lymphocytes (CBC) 2.6 K/uL (0.7-4.9); Absolute Monocytes 0.5 K/uL (0.1-1.3); Absolute Neutrophil 5.5 K/uL (1.8-8.0); Basophils % 0.6 % (0-1.3); Eosinophils % 0.8 % (0-4.4); Hemoglobin 13.4 g/dL (12.0-15.0); Lymphocytes % 29.8 % (15.3-44.8); MCHC 34.4 g/dL (32.0-36.0); MCV 84.2 fL (80-100); MPV 7.8 fL (7.6-11.3); Monocytes % 5.6 % (3.3-12.3); Neutrophils % 63.2 % (41.7-73.7); Nucleated Red Blood Cells % 0.2 % (0-0); Platelets 359 thou/uL (152-406); RBC Red Blood Cell Count 4.63 M/uL (3.86-4.86); Red Cell Distribution Width 13.5 % (12.1-15.2)
[2025-01-12 01:02] LABS: ALT/SGPT 22 U/L (13-56); Albumin 3.7 g/dL (3.4-5.0); Alkaline Phosphatase 66 U/L (45-117); Anion Gap 8.4 mEq/L (5.0-15.0); BUN Blood Urea Nitrogen 9 mg/dL (7-18); Bicarbonate 26 mEq/L (21-32); Bilirubin Total 0.4 mg/dL (0.2-1.0); Globulin 3.6 g/dL (2.3-3.5); Glomerular Filtration Rate 127 ml/min (=/>90); Glucose Level 129 mg/dL (74-106); Lipase 36 U/L (13-75); Potassium 3.4 mEq/L (3.5-5.1); Protein, Total 7.3 g/dL (6.4-8.2); Sodium Level 138 mEq/L (136-145)
[2025-01-12 01:04] LABS: AST/SGOT < 10 U/L (15-37)
[2025-01-12 01:56] LABS: Specific Gravity 1.026 (1.005-1.030); Urine Bilirubin NEGATIVE (Negative); Urine Blood Negative (Negative); Urine Clarity Clear (Clear); Urine Color Colorless (Yellow); Urine Glucose NEGATIVE (Negative); Urine Ketones NEGATIVE (Negative); Urine Microscopic Reflex YN NO UMIC; Urine Nitrite NEGATIVE (Negative); Urine Protein NEGATIVE (Negative); Urine Urobilinogen Normal (Normal)
--- NOTE | 2025-01-12 02:35 | RAD REPORT ---
CLINICAL HISTORY: Abdominal pain. COMPARISON: CT Abdomen Pelvis 03/27/2021. TECHNIQUE: CT ABDOMEN PELVIS WITH IV CONTRAST on 01/12/2025 12:21 AM CDT This exam was performed according to our departmental dose-optimization program, which includes autom ated exposure control, adjustment of the mA and/or kV according to patient size and/or use of iterative reconstruction technique. FINDINGS: Lower lungs are clear. Abdomen: The liver is normal in appearance. There is no biliary dilatation. Gallbladder is normal in appearance. The pancreas and spleen are normal in appearance. The adrenal glands and kidneys are unremarkable. Abdominal aorta is normal in course and caliber without aneurysm. There is no free air. There is no r etroperitoneal adenopathy. Pelvis: There is no bowel obstruction. Urinary bladder is unremarkable. There is no free fluid. Uteru s is normal in size. Appendix is normal. Skeleton: There are no acute osseous findings. No suspicious bony lesions. IMPRESSION: No acute process. Electronically signed by: Jemal Rivera MD 01/12/2025 02:30 AM CDT Due to temporary technical issues with the PACS/Epivios reporting system, reports are being tess d by the in-house radiologist without review as a courtesy to ensure prompt reporting the interpreting radiologist is fully responsible for the content of the report. Transcribed Date/Time: 01/12/2025 2:35 AM
--- NOTE | 2025-01-12 02:38 | ER ---
Nurse's Notes [facility] Name: Althea Harmon Age: 29 yrs Sex: Female : 1995 Arrival Date: 01/11/2025 Time: 23:59 Bed 5 Private MD: Diagnosis: Abdominal pain, unspecified Presentation: 01/12 00:14 Chief complaint: Patient states: C/o pain to right side of abdomen that radiates to ha1 back. Pain started today. Nauseated but no vomiting. Coronavirus screen: Vaccine status: Patient reports receiving the 2nd dose of the covid vaccine. Ebola Screen: Patient negative for fever greater than or equal to 101.5 degrees Fahrenheit, and additional compatible Ebola Virus Disease symptoms. 00:14 Method Of Arrival: Ambulatory ha1 00:16 Initial Sepsis Screen: Does the patient meet any 2 criteria? No. Patient's initial ha1 sepsis screen is negative. Risk Assessment: Do you want to hurt yourself or someone else? Patient reports no desire to harm self or others. Onset of symptoms was January 11, 2022. 00:16 Acuity: ZENON 3 ha1 02:54 Initial Sepsis Screen: Does the patient have a suspected source of infection? No. cp4 Patient's initial sepsis screen is negative. 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 - Infectious Disease History:: Denies. - Family history:: not pertinent. - Social history:: Smoking status: Patient denies any tobacco usage or history of. Screenin:42 [facility] ED Fall Risk Assessment (Adult) History of falling in the last 3 months, cp4 including since admission No falls in past 3 months (0 pts) Confusion or Disorientation No (0 pts) Intoxicated or Sedated No (0 pts) Impaired Gait No (0 pts) Mobility Assist Device Used No (0 pt) Altered Elimination No (0 pt) Score/Fall Risk Level 0 - 2 = Low Risk Oriented to surroundings, Maintained a safe environment, Assessed \T\ reinforced patient's understanding of fall precautions, Hourly rounding (assess needs \T\ fall precautionary measures) done. Abuse screen: Denies threats or abuse. Denies injuries from another. Nutritional screening: No deficits noted. Tuberculosis screening: No symptoms or risk factors identified. Assessment: 00:39 General: Appears in no apparent distress. uncomfortable, Behavior is calm, cooperative, cp4 appropriate for age. Pain: Complains of pain in abdomen Pain radiates to back Pain currently is 10 out of 10 on a pain scale. Neuro: Level of Consciousness is awake, alert, obeys commands, Oriented to person, place, time, situation. Cardiovascular: Patient's skin is warm and dry. Respiratory: Airway is patent Respiratory effort is even, unlabored. GI: Abdomen is round non-distended, Bowel sounds present X 4 quads. Abd is soft and non tender X 4 quads. : No signs and/or symptoms were reported regarding the genitourinary system. EENT: No signs and/or symptoms were reported regarding the EENT system. Derm: No signs and/or symptoms reported regarding the dermatologic system. Musculoskeletal: No signs and/or symptoms reported regarding the musculoskeletal system. Vital Signs: 00:14 BP 131 / 70; Pulse 72; Resp 18; Temp 98.3; Pulse Ox 100% ; Weight 104.33 kg; Height 5 ha1 ft. 3 in. ; Pain 10/10; 01:21 BP 133 / 88; Pulse 70; Resp 18; Pulse Ox 100% ; cp4 02:26 BP 123 / 71; Pulse 67; Resp 18; Pulse Ox 100% ; cp4 00:14 Body Mass Index 40.74 (104.33 kg, 160.02 cm) ha1 00:14 Pain Scale: Adult ha1 ED Course: 00:04 Patient arrived in ED. gm2 00:05 Paulino Hill MD is Attending Physician. rt 00:16 Triage completed. ha1 00:26 Lorraine Gracia is Primary Nurse. cp4 00:42 Bed in low position. Call light in reach. Side rails up X 1. cp4 00:42 No provider procedures requiring assistance completed. Initial lab(s) drawn, by me, cp4 sent to lab. Inserted saline lock: 22 gauge in right antecubital area, using aseptic technique. Blood collected. Flushed with 10 mL NS. 01:28 CT Abd/Pelvis - IV Contrast Only In Process Unspecified. EDMS 02:53 Provided Education on: abdominal pain. cp4 02:53 Arm band placed on right wrist. Patient placed in waiting room. cp4 02:53 intact, bleeding controlled, No redness/swelling at site. Pressure dressing applied. cp4 Administered Medications: 00:39 Drug: NS 0.9% IV 1000 ml IV at 1 bolus Per protocol; to be given as a bolus over 60 cp4 minutes Route: IV; Rate: 1 bolus; Site: right antecubital; 02:49 Follow up: IV Status: Completed infusion cp4 02:49 Not Given (Patient Refused): TORadol - [id number] mg IVP once cp4 Medication: 00:42 VIS not applicable for this client. cp4 Outcome: 02:38 Discharge ordered by . rt 02:53 Discharged to home ambulatory, cp4 02:53 Condition: stable 02:53 Discharge instructions given to patient, Instructed on discharge instructions, follow up and referral plans. Demonstrated understanding of instructions, follow-up care, 02:54 Patient left the ED. cp4 Signatures: Dispatcher [employer] EDMS Catia Pathak RN RN ha1 Paulino Hill MD MD rt Lorraine Gracia cp4 Katelyn Fernandez 2
--- NOTE | 2025-01-12 02:38 | EDPHYS ---
Physician Documentation [facility] Name: Althea Harmon Age: 29 yrs Sex: Female : 1995 Arrival Date: 01/11/2025 Time: 23:59 Bed 5 Private MD: ED Physician Paulino Hill HPI: 01/12 00:52 This 29 yrs old Female presents to ER via Ambulatory with complaints of rt Abdominal Pain, Back Pain. 00:52 Patient presents to the ED with right upper quadrant pain radiating to the back. This rt occurred after eating a spicy meal. Was initially intermittent, now is constant. Is sharp in nature. Has associated nausea without vomiting. Denies other acute complaints at this time, symptoms are moderate severity, no other aggravating alleviating factors.. 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 - Infectious Disease History:: Denies. - Family history:: not pertinent. - Social history:: Smoking status: Patient denies any tobacco usage or history of. ROS: 00:52 Constitutional: Negative for fever, chills, and weight loss, Cardiovascular: Negative rt for chest pain, palpitations, and edema, Respiratory: Negative for shortness of breath, cough, wheezing, and pleuritic chest pain, MS/Extremity: Negative for injury and deformity, Skin: Negative for injury, rash, and discoloration, Neuro: Negative for headache, weakness, numbness, tingling, and seizure, 00:52 Abdomen/GI: Positive for abdominal pain, nausea, Exam: 00:52 Constitutional: This is a well developed, well nourished patient who is awake, alert, rt and in no acute distress. Head/Face: Normocephalic, atraumatic. Chest/axilla: Normal chest wall appearance and motion. Nontender with no deformity. No lesions are appreciated. Cardiovascular: Regular rate and rhythm with a normal S1 and S2. No gallops, murmurs, or rubs. Normal PMI, no JVD. No pulse deficits. Respiratory: Lungs have equal breath sounds bilaterally, clear to auscultation and percussion. No rales, rhonchi or wheezes noted. No increased work of breathing, no retractions or nasal flaring. Skin: Warm, dry with normal turgor. Normal color with no rashes, no lesions, and no evidence of cellulitis. MS/ Extremity: Pulses equal, no cyanosis. Neurovascular intact. Full, normal range of motion. Neuro: Awake and alert, GCS 15, oriented to person, place, time, and situation. Cranial nerves II-XII grossly intact. Motor strength 5/5 in all extremities. Sensory grossly intact. Cerebellar exam normal. Normal gait. 00:52 Abdomen/GI: Mild tenderness to the right upper quadrant without rebound, guarding, distention, Vital Signs: 00:14 BP 131 / 70; Pulse 72; Resp 18; Temp 98.3; Pulse Ox 100% ; Weight 104.33 kg; Height 5 ha1 ft. 3 in. ; Pain 10/10; 01:21 BP 133 / 88; Pulse 70; Resp 18; Pulse Ox 100% ; cp4 02:26 BP 123 / 71; Pulse 67; Resp 18; Pulse Ox 100% ; cp4 00:14 Body Mass Index 40.74 (104.33 kg, 160.02 cm) ha1 00:14 Pain Scale: Adult ha1 MDM: 00:21 Medical Screening Exam initiated rt 02:47 Differential diagnosis: Gastritis, cholecystitis, cholelithiasis, renal colic. Data rt reviewed: vital signs, nurses notes, lab test result(s), radiologic studies. I considered the following discharge prescriptions or medication management in the emergency department Medications were administered in the Emergency Department. See MAR. Independent interpretation of the following test(s) in the Emergency Department CT Scan: My interpretation is No bowel obstruction seen on my interpretation of CT scan images. Counseling: I had a detailed discussion with the patient and/or guardian regarding the historical points, exam findings, and any diagnostic results supporting the discharge/admit diagnosis, lab results, radiology results, the need for outpatient follow up. Response to treatment: the patient's symptoms have resolved after treatment, the patient's pain is gone. 01/12 00:21 Order name: CBC with Diff; Complete Time: : rt 01/12 00:21 Order name: CMP; Complete Time: : rt 01/12 00:21 Order name: Lipase; Complete Time: rt 01/12 00:21 Order name: Urinalysis w/ reflexes; Complete Time: 01:58 rt 01/12 00:22 Order name: Test, Serum; Complete Time: 01:29 rt 01/12 00:21 Order name: CT Abd/Pelvis - IV Contrast Only rt 01/12 00:22 Order name: IV Saline Lock; Complete Time: 00:39 rt 01/12 00:22 Order name: Labs collected and sent; Complete Time: 00:39 rt Administered Medications: 00:39 Drug: NS 0.9% IV 1000 ml IV at 1 bolus Per protocol; to be given as a bolus over 60 cp4 minutes Route: IV; Rate: 1 bolus; Site: right antecubital; 02:49 Follow up: IV Status: Completed infusion cp4 02:49 Not Given (Patient Refused): TORadol - [id number] mg IVP once cp4 Disposition Summary: 01/12/25 02:38 Discharge Ordered Notes: Location: Home rt Problem: new rt Symptoms: are resolved rt Condition: Stable rt Diagnosis - Abdominal pain, unspecified rt Followup: rt - With: Private Physician - When: 2 - 3 days - Reason: Discharge Instructions: - Discharge Summary Sheet rt - Abdominal Pain, Adult rt Forms: - Medication Reconciliation Form rt - Antibiotic Education rt - Prescription Opioid Use rt - Patient Portal Instructions rt - Leadership Thank You Letter rt - Work release form cp4 Signatures: Dispatcher [employer] Paulino Landaverde MD MD rt Potter, Christina cp4
[2025-01-13 10:53] VITALS: TEMP 98.3; O2SAT 100
[2025-01-13 10:55] VITALS: BP 123/71
== END 2025-01-12 02:54 | disposition home or self-care (01) ==
LOC: ER 23:59
DX: R10.11 Right upper quadrant pain (principal)
CPT/HCPCS: 36415; 74177; 80053; 81003; 83690; 84703; 85025; 96360; 96361; 99284; J7030; Q9967